=== PATIENT | female | born 1990 | race Caucasian/White ===

== ENCOUNTER 2016-05-14 15:45 | Emergency (ER) | payer MEDICAID, OTHER ==
[~2016-05-14] VITALS: Ht 160 cm; Wt 56.7 kg
[2016-05-14 16:13] VITALS: BP 95/58
== END 2016-05-15 00:25 | disposition left against medical advice (07) ==
LOC: ER 15:55
DX: R10.30 Lower abdominal pain, unspecified (principal); R30.0 Dysuria; Z53.21 Procedure and treatment not carried out due to patient leaving prior to being seen by health care provider

== ENCOUNTER 2018-12-19 07:29 | Inpatient (IN) | payer MEDICAID ==
[~2018-12-19] VITALS: Ht 33 cm; Wt 0.5 kg
[2018-12-19] MEDS ORDERED: LACTATED RINGER'S 1,000 ML IV SCH (07:43)
[2018-12-19] MEDS ORDERED: LACT. RINGERS/OXYTOCIN 20UNITS 1,000 ML IV SCH (07:43)
[2018-12-19] MEDS ORDERED: DERMOPLAST 60ML BOTTLE TOP PRN (07:45)
[2018-12-19] MEDS ORDERED: PHISODERM TOP SOLN 240ML BTL TOP PRN (07:45)
[2018-12-19] MEDS ORDERED: WITCH HAZEL-GLYCERIN PAD TOP PRN (07:45)
[2018-12-19] MEDS ORDERED: PENICILLIN G POT 5MIL/D5 50ML 50 ML IV ONE (07:45)
[2018-12-19] MEDS ORDERED: LIDOCAINE 2%HCL (LOCAL ANESTH.) INJ 20ML MDV ID ONE (07:45)
[2018-12-19] MEDS ORDERED: ceFAZolin 1GM/50ML 50 ML IV ONE (07:57)
[2018-12-19] MEDS ORDERED: LIDOCAINE 2%HCL (LOCAL ANESTH.) INJ 20ML MDV ONE (08:01)
[2018-12-19] MEDS ORDERED: LACT. RINGERS/OXYTOCIN 20UNITS 1,000 ML IV ONE (08:02)
[2018-12-19 08:51] LABS: Albumin 1.9 g/dL (3.4-5.0); Potassium 4.3 mmol/L (3.5-5.1)
[2018-12-19 08:52] LABS: Basophils # (auto) 0 uL; Basophils % (auto) 0.3 % (0.0-2.0); Eosinophils # (auto) 0 uL; Eosinophils % (auto) 0.2 % (0.0-7.0); Hematocrit 32.9 % (36.0-46.0); Hemoglobin 10.2 g/dL (12.2-16.2); INR < 0.93 (0.9-1.15); Lymphocytes # (auto) 2.2 uL; Lymphocytes % (auto) 15.7 % (10.0-50.0); Mean Corpuscular Hemoglobin 25.3 pg (28.0-32.0); Mean Corpuscular Hgb Conc. 30.9 g/dL (32.0-36.0); Mean Corpuscular Volume 81.9 fL (80.0-100.0); Monocytes # (auto) 0.9 uL; Monocytes % (auto) 6.4 % (0.0-12.0); Neutrophils # (auto) 10.8 uL; Neutrophils % (auto) 77.4 % (37.0-80.0); Partial Thromboplastin Time 23.6 sec (23.64-32.05); Platelet Count (auto) 275 10^3/uL (140-450); Red Blood Cells 4.02 10^6/uL (4.0-5.20); Red Cell Distribution Width 15.2 % (11.8-14.3); White Blood Cell 13.9 10^3/uL (4.4-10.8)
[2018-12-19 08:56] LABS: BUN/Creatinine Ratio 8.4; Bilirubin, Total 0.7 mg/dL (0.2-1.0); Total Protein 6.2 g/dL (6.4-8.2); Uric Acid 6.7 mg/dL (2.6-6.0)
[2018-12-19 09:08] LABS: Urine Bacteria NONE SEEN /hpf (None Seen); Urine Blood Negative /uL (Negative); Urine Specific Gravity 1.014 (1.001-1.035); Urine WBC 13 /hpf (0 - 5)
[2018-12-19] MEDS ORDERED: ACETAMINOPHEN 325 MG TAB PO PRN (09:30)
[2018-12-19] MEDS: IBUPROFEN 600 MG TAB PO PRN ×2 (10:22→23:05)
[2018-12-19 11:12] VITALS: BP 120/74
--- NOTE | 2018-12-19 11:12 | NUR ---
burch noted on legs and arms, pt states " that they are from scratching due to bug bites". Addendum: 12/19/18 at 1743 by Nitza Morse RN Amended: Links added.
--- NOTE | 2018-12-19 11:12 | NUR ---
Ambulation: Pt assisted to side of bed to dangle prior to ambulation. VS taken, fundus and lochia checked. Patient OOB with standby assistance by RN. Patient ambulated to bathroom with steady gait. Patient unable to void at . Pericare teaching provided with returned demonstration by patient. Clean gown provided and bed linen changed. Patient ambulated back to bed with steady gait and no distress noted.
[2018-12-19 12:18] LABS: Alcohol, Urine < 3.0 mg/dL (0-5); Amphetamine Screen, Urine POSITIVE (NEGATIVE); Barbiturate Scree,Urine NEGATIVE (NEGATIVE); Cannabinoid Screen, Urine NEGATIVE (NEGATIVE); Cocaine Screen, Urine NEGATIVE (NEGATIVE); Opiate Scree,Urine POSITIVE (NEGATIVE); Phencyclidine Screen, Urine NEGATIVE (NEGATIVE)
[2018-12-19 12:26] LABS: Benzodiazephine Screen, Urine NEGATIVE (NEGATIVE)
--- NOTE | 2018-12-19 13:06 | NUR ---
Dr. Andrea called and inform of TSH results and all other lab results. UDS results given. Orders received for Hospitalist consult for elevated TSH and pt history of gianna's disease.
--- NOTE | 2018-12-19 13:10 | NUR ---
[facility] called and notified of hospitalist consult.
[2018-12-19] MEDS ORDERED: ceFAZolin 1GM/50ML 50 ML IV SCH (14:00)
[2018-12-19] MEDS ORDERED: PENICILLIN G POTASSIUM 2,500,000 UNITS in D5W 5% 50 ML IV SCH (14:00)
[2018-12-19 16:30] VITALS: BP 117/71
--- NOTE | 2018-12-19 18:10 | NUR ---
Report given to Zacarias Watson RN on stable pt. Relinquished care. Addendum: 12/19/18 at 1843 by Nitza Morse RN Amended: Links added.
[2018-12-19 22:55] VITALS: BP 127/86
--- NOTE | 2018-12-19 23:30 | NUR ---
Call placed to CPS: Referral number: [id number] Spoke to fundraising sale representative Susana Sim. Informed that mother and baby tested positive for amphetamines and opiates, mother is bonding with baby at this time. Mother has another child named Cary Monroy ( 04/09/18) who lives with patient's mother. The following demographic information was given to Susana: Pt phone number [phone] Pt boyfriend Jose Manuel Martinez Joselito [phone] Pt states she will be living her mother, Ella Dharmeshprieto @ [address] [facility] [address]. Ella's # is [phone]
[2018-12-20] MEDS ORDERED: RHO (D) IMMUNE GLOBULIN 300 MCG INJ IM ONE
--- NOTE | 2018-12-20 01:00 | NUR ---
IV removal IV DC'd with sterile technique, catheter fully intact. Pressure dressing applied to site. Patient tolerated procedure well.
--- NOTE | 2018-12-20 01:20 | NUR ---
Patient verbalizes that she last used heroin on Friday.
[2018-12-20 02:40] VITALS: BP 116/61
[2018-12-20] MEDS: IBUPROFEN 600 MG TAB PO PRN ×2 (05:06→19:57)
[2018-12-20 07:00] VITALS: BP 114/74
--- NOTE | 2018-12-20 10:00 | NUR ---
CPS CALL JENNIFER STUART [phone] CALLED AND STATED THAT SHE WILL BE HERE AT 10PM TONIGHT TO TALK WITH MOTHER.
[2018-12-20 11:00] VITALS: BP 129/77
--- NOTE | 2018-12-20 11:26 | NUR ---
WORLD LANGUAGE TEACHER CALLED MADE TO [employer]. MESSAGE LEFT.
[2018-12-20 12:09] LABS: RPR Non Reactive (Non Reactive)
[2018-12-20 15:00] VITALS: BP 126/87
--- NOTE | 2018-12-20 15:42 | NUR ---
Jazmin called and stated she will follow up in the morning
--- NOTE | 2018-12-20 16:11 | NUR ---
Ella Cotton is the mother of the patient. her phone number is [phone]. she wants to be here when CPS arrives if they happen to have any questions for her
[2018-12-20 19:00] VITALS: BP 115/87
[2018-12-20 22:46] VITALS: BP 136/79
--- NOTE | 2018-12-21 01:09 | NUR ---
Camila Amador [place] Social Service Practitioner at bedside
[2018-12-21 02:55] VITALS: BP 136/91
[2018-12-21 04:06] LABS: Rubella Antibodies, IgG 5.38 index (Immune >0.99)
--- NOTE | 2018-12-21 06:10 | NUR ---
Report received from Deidre Jara RN on stable pt. Assumed care. Addendum: 12/21/18 at 0627 by Nitza Morse RN Amended: Links added.
[2018-12-21 06:45] VITALS: BP 111/72
--- NOTE | 2018-12-21 07:52 | NUR ---
CPS social science teacher arrives to unit and speaks with this RN and patient. CPS hold placed on until Grandmother is cleared to take home.
--- NOTE | 2018-12-21 09:15 | NUR ---
Discharge: Discharge instructions given as ordered. Pt encouraged to follow up with HEATING AND VENTILATION ENGINEER as instructed. All questions and concerns addressed. Patient verbalized understanding. Medication reconciliation completed and copy given to patient. All required/requested vaccines given and copies of vaccinations given to patient. Patient encouraged to prepare to depart unit.
--- NOTE | 2018-12-21 09:54 | NUR ---
Assessment and SS consult Pt is a 28 yr old alert and oriented female. Pt came into hospital on Friday, 12/19, with contractions for labor. Pt gave vaginally to a baby girl, who was named Erendira, on Tuesday 12/19. SS consult given due to "no PNC, UDS positive for opiates and amphetamines, homeless, has a positive UDS for opiates and amphetamines also." SW informed by pt's nurse, Nitza, that CPS was called Friday night by RN Nicki Leonard, Referral number: [id number], and that CPS had already done a visit with the mother and that they put a hold on the baby. SW talked with the pt. The pt was holding her baby at the time of the assessment. Pt stated that she understands that CPS put a hold on her baby and that she is unable to take her home. Pt stated that her mother, Ella Page, who can be reached at [phone], is planning and preparing to take care of baby Erendira along with the pt's other daughter, Cary Monroy, who is age 10, as long as the pt doesn't live there too. Pt stated that she will be staying with her step-dad, in [facility] upon d/c. Pt stated that she did not take vitamins during because she would get really sick each time she tried. Pt stated that she did not see a doctor during her because her old DrAbdirizak wasn't practicing anymore and she didn't know who to go to. Pt was interested in resources including WIC info, PCP info, mental health resources including substance abuse recovery and rehab center in the [facility]. SW provided requested resources. SW talked with nurse on staff who stated that CPS said that it was alright for the pt to hold the baby in the hospital until she is d/c'd. SW called CPS to verify that no additional information was needed. CPS stated that the mandated report was fulfilled and that no additional information is required. Addendum: 12/21/18 at 0954 by MANUEL KENNEY SS Amended: Links added.
--- NOTE | 2018-12-21 10:20 | NUR ---
Dr. Andrea called by this RN and informed of TSH level 3.16. Orders received to continue with d/c home.
[2018-12-21 11:33] VITALS: BP 132/83
--- NOTE | 2018-12-21 11:44 | NUR ---
Discharge: Patient ambulated with steady gait to vehicle with all personal belongings, accompanied by staff and family member. No distress noted at time of departure, no adverse changes in status since initial assessment.
== END 2018-12-21 11:44 | disposition home or self-care (01) | DRG 560 ==
LOC: OBSVTOIN 07:29 → LDRP 07:29
PROVIDERS: ADMIT Specialist; ATTEND Specialist
PROC: 10D07Z6 Extraction of Products of Conception, Vacuum, Via Natural or Artificial Opening (ICD-10-PCS; principal; 2018-12-19)
PROC: 0HQ9XZZ Repair Perineum Skin, External Approach (ICD-10-PCS; 2018-12-19)
DX: O77.0 Labor and delivery complicated by meconium in amniotic fluid (principal); O60.13X0 Preterm labor second trimester with preterm delivery third trimester, not applicable or unspecified; O62.3 Precipitate labor; Z37.0 Single live birth; Z3A.36 36 weeks gestation of pregnancy; O70.0 First degree perineal laceration during delivery; O99.324 Drug use complicating childbirth; F11.10 Opioid abuse, uncomplicated
CPT/HCPCS: 36415; 59025; 59409; 80053; 80307; 81001; 84112; 84443; 84550; 85025; 85610; 85730; 86592; 86703; 86762; 86850; 86900; 86901; 87340; 90384; 96365; 96366; 96372; G0378; J0690; J2590; J7060

== ENCOUNTER 2021-02-14 14:58 | Inpatient (IN) | payer MEDICAID ==
[~2021-02-14] VITALS: Ht 165.1 cm; Wt 63.5 kg
[2021-02-14] MEDS ORDERED: ALBUTEROL SULF 2.5 MG/0.5ML(0.5%) NEB SOLN NEB ONE ×2 (15:15→20:30)
[2021-02-14] MEDS ORDERED: IPRATROPIUM BROM 0.5 MG/2.5ML INH SOL NEB ONE ×3 (15:15→20:30)
[2021-02-14 22:15] LABS: Basophils # (auto) 0 10 ^3/uL (0-0.2); Basophils % (auto) 0.1 % (0.0-2.0); Eosinophils # (auto) 0 10 ^3/uL (0-0.8); Eosinophils % (auto) 0.1 % (0.0-7.0); Hematocrit 34.4 % (36.0-46.0); Hemoglobin 11.1 g/dL (12.2-16.2); Lymphocytes # (auto) 0.4 10 ^3/uL (0.4-5.4); Mean Corpuscular Hemoglobin 22.8 pg (28.0-32.0); Mean Corpuscular Hgb Conc. 32.2 g/dL (32.0-36.0); Mean Corpuscular Volume 70.9 fL (80.0-100.0); Monocytes # (auto) 0.1 10 ^3/uL (0-1.3); Monocytes % (auto) 1.1 % (0.0-12.0); Neutrophils # (auto) 12.7 10 ^3/uL (1.6-8.6); Neutrophils % (auto) 95.7 % (37.0-80.0); Red Blood Cells 4.86 10^6/uL (4.0-5.20); White Blood Cell 13.3 10^3/uL (4.4-10.8)
[2021-02-14 22:32] LABS: Albumin 3.6 g/dL (3.4-5.0); Calcium 8.7 mg/dL (8.5-10.1); Magnesium 2.9 mg/dL (1.6-2.6); Potassium 4.2 mmol/L (3.5-5.1)
[2021-02-14 22:35] LABS: BUN/Creatinine Ratio 11.8; Bilirubin, Total 0.4 mg/dL (0.2-1.0); Total Protein 7.2 g/dL (6.4-8.2)
[2021-02-15] MEDS ORDERED: ONDANSETRON HCL 4 MG/2 ML VIAL IV PRN (01:15)
[2021-02-15] MEDS ORDERED: NITROGLYCERIN 0.4 MG SL TAB SL PRN (01:15)
[2021-02-15] MEDS ORDERED: MORPHINE SULFATE INJECTION 2 MG/ML SYRG IV PRN (01:15)
[2021-02-15] MEDS: ALBUTEROL SULF 2.5 MG/0.5ML(0.5%) NEB SOLN NEB SCH ×4 (05:48→22:54)
[2021-02-15] MEDS ORDERED: methylPREDNISolone SOD SUCC 40 MG/ML VL IV SCH (06:00)
[2021-02-15 12:00] VITALS: BP 103/55
[2021-02-15] MEDS ORDERED: methylPREDNISolone SOD SUCC 40 MG/ML VL IV ONE (15:00)
[2021-02-15 15:58] LABS: Basophils # (auto) 0 10 ^3/uL (0-0.2); Basophils % (auto) 0.1 % (0.0-2.0); Eosinophils # (auto) 0 10 ^3/uL (0-0.8); Hematocrit 33.2 % (36.0-46.0); Hemoglobin 10.8 g/dL (12.2-16.2); Lymphocytes # (auto) 0.8 10 ^3/uL (0.4-5.4); Lymphocytes % (auto) 5.4 % (10.0-50.0); Mean Corpuscular Hgb Conc. 32.4 g/dL (32.0-36.0); Mean Corpuscular Volume 70.9 fL (80.0-100.0); Monocytes # (auto) 0.9 10 ^3/uL (0-1.3); Neutrophils # (auto) 13.6 10 ^3/uL (1.6-8.6); Neutrophils % (auto) 88.5 % (37.0-80.0); Red Blood Cells 4.68 10^6/uL (4.0-5.20); Red Cell Distribution Width 18.3 % (11.8-14.3); White Blood Cell 15.4 10^3/uL (4.4-10.8)
[2021-02-15 16:00] VITALS: BP 104/53
[2021-02-15 16:14] LABS: Anion Gap 7 (5-15); BUN/Creatinine Ratio 21.6; Blood Urea Nitrogen 16 mg/dL (7-18); Carbon Dioxide 24 mmol/L (21-32); Chloride 108 mmol/L (98-107); GFR African American 119 mL/min; GFR Non-African American 98 mL/min; Glucose 137 mg/dL (74-106); Potassium 4.9 mmol/L (3.5-5.1); Sodium 139 mmol/L (136-145)
[2021-02-15] MEDS: methylPREDNISolone SOD SUCC 40 MG/ML VL IV SCH (21:16)
[2021-02-15 22:00] VITALS: BP 117/69
[2021-02-15] MEDS: guaiFENesin-DM 100/10mg/5ml SYR PO PRN (22:01)
[2021-02-16] MEDS: guaiFENesin-DM 100/10mg/5ml SYR PO PRN ×2 (02:31→07:06)
[2021-02-16 05:00] VITALS: BP 105/58
[2021-02-16 08:52] VITALS: BP 129/70
[2021-02-16] MEDS ORDERED: SODIUM CHLORIDE 0.9 % NEB SOLN 3ML NEB ONE (09:43)
[2021-02-16] MEDS: methylPREDNISolone SOD SUCC 40 MG/ML VL IV SCH (09:59)
[2021-02-16 12:58] VITALS: BP 141/66
[2021-02-16] MEDS ORDERED: DEXT1SYP9 PO (16:45)
[2021-02-16] MEDS ORDERED: IPR002IS NEB (16:45)
[2021-02-16] MEDS ORDERED: PRED20TA2 PO (16:45)
[2021-02-16] MEDS ORDERED: ALBU0.084 NEB (16:45)
[2021-02-16 16:52] VITALS: BP 122/74
== END 2021-02-16 19:30 | disposition home or self-care (01) | DRG 133 ==
LOC: ER 14:58 → EDBD 14:58 → TELE 02-15 01:13 → TELE-WESTW 02-15 09:15
PROVIDERS: ADMIT Hospitalist; ATTEND Hospitalist
PROC: 5A09357 Assistance with Respiratory Ventilation, Less than 24 Consecutive Hours, Continuous Positive Airway Pressure (ICD-10-PCS; principal; 2021-02-14)
DX: J96.01 Acute respiratory failure with hypoxia (principal); J45.901 Unspecified asthma with (acute) exacerbation; F17.200 Nicotine dependence, unspecified, uncomplicated; Z20.822 Contact with and (suspected) exposure to COVID-19; J98.11 Atelectasis; Z71.6 Tobacco abuse counseling
CPT/HCPCS: 36415; 36600; 71045; 80048; 80053; 81025; 82805; 83735; 84702; 85025; 87426; 94640; 94644; 94660; 96374; 99291; G0378

== ENCOUNTER 2023-06-14 10:23 | Inpatient (IN) | payer MEDICAID ==
[~2023-06-14] VITALS: Ht 160 cm; Wt 72.6 kg
[~2023-06-14 10:23] MED LIST: ALBU0.084 NEB; DEXT1SYP9 PO; IPR002IS NEB; PRED20TA2 PO
[2023-06-14] MEDS: ALBUTEROL SULF 2.5 MG/0.5ML(0.5%) NEB SOLN ONE (10:29)
[2023-06-14] MEDS: IPRATROPIUM BROM 0.5 MG/2.5ML INH SOL ONE (10:29)
[2023-06-14] MEDS: IPRATROPIUM BROM 0.5 MG/2.5ML INH SOL HHN ONE (10:30)
[2023-06-14] MEDS: MAGNESIUM SULFATE 1GM/100ML 100 ML IV SCH (10:30)
[2023-06-14] MEDS: ALBUTEROL SULF 2.5 MG/0.5ML(0.5%) NEB SOLN HHN ONE (10:30)
[2023-06-14] MEDS: DexAMETHasone SOD PHOS 10MG/1ML VIAL INJ IV ONE (10:38)
[2023-06-14] MEDS: LORazepam 2MG/ML-1ML VIAL IV ONE (10:45)
[2023-06-14 11:02] LABS: Base Excess -5.7 mmol/L (-2.0-2.0)
[2023-06-14 11:22] VITALS: PULSE 117
[2023-06-14 11:39] LABS: Alanine Aminotransferase 69 U/L (7-40); Alkaline Phosphatase 59 U/L (46-116); Anion Gap 9 (5-15); Aspartate Aminotransferase 68 U/L (13-40); BUN/Creatinine Ratio 8.1 (10.0-20.0); Blood Urea Nitrogen 8 mg/dL (9-23); Calcium 9.1 mg/dL (8.5-10.1); Carbon Dioxide 22 mmol/L (20-30); Chloride 109 mmol/L (98-107); Glucose 150 mg/dL (74-106); Potassium 4.2 mmol/L (3.5-5.1); Sodium 140 mmol/L (136-145)
[2023-06-14 11:40] LABS: Bilirubin, Total 0.5 mg/dL (0.2-1.0); Total Protein 6.4 g/dL (5.7-8.2)
[2023-06-14 11:42] LABS: Basophils # (auto) 0.1 10 ^3/uL (0-0.2); Basophils % (auto) 0.5 % (0.0-2.0); Eosinophils # (auto) 0.9 10 ^3/uL (0-0.8); Eosinophils % (auto) 6.6 % (0.0-7.0); Hematocrit 42.7 % (36.0-46.0); Hemoglobin 13.6 g/dL (12.2-16.2); Lymphocytes # (auto) 2.2 10 ^3/uL (0.4-5.4); Lymphocytes % (auto) 16.1 % (10.0-50.0); Mean Corpuscular Hemoglobin 27.4 pg (28.0-32.0); Mean Corpuscular Hgb Conc. 31.8 g/dL (32.0-36.0); Monocytes # (auto) 0.8 10 ^3/uL (0-1.3); Monocytes % (auto) 6.3 % (0.0-12.0); Neutrophils # (auto) 9.4 10 ^3/uL (1.6-8.6); Neutrophils % (auto) 70.5 % (37.0-80.0); Red Blood Cells 4.97 10^6/uL (4.0-5.20); Red Cell Distribution Width 14.4 % (11.8-14.3); White Blood Cell 13.4 10^3/uL (4.4-10.8)
[2023-06-14 13:08] LABS: Base Excess -3.5 mmol/L (-2.0-2.0)
[2023-06-14] MEDS ORDERED: MORPHINE SULFATE INJ 2 MG/ml SYRG IV PRN (13:15)
[2023-06-14] MEDS ORDERED: ACETAMINOPHEN 325 MG TAB PO PRN (13:15)
[2023-06-14] MEDS ORDERED: SODIUM CHLORIDE 0.9% 1,000 ML IV SCH (13:15)
[2023-06-14] MEDS ORDERED: NITROGLYCERIN 0.4 MG SL TAB SL PRN (13:15)
[2023-06-14] MEDS ORDERED: ALBUTEROL SULF 2.5 MG/0.5ML(0.5%) NEB SOLN NEB PRN (13:15)
[2023-06-14] MEDS ORDERED: SODIUM CHLORIDE 0.9% 1,000 ML IV ONE (13:30)
[2023-06-14 14:30] VITALS: BP 121/76; PULSE 77; O2SAT 94
[2023-06-14] MEDS: IPRATROPIUM BROM 0.5 MG/2.5ML INH SOL NEB SCH (14:30)
[2023-06-14] MEDS: ALBUTEROL SULF 2.5 MG/0.5ML(0.5%) NEB SOLN NEB SCH (14:30)
[2023-06-14 14:58] VITALS: BP 99/53; PULSE 104; RESP 30; TEMP 98.7; O2SAT 95
[2023-06-14 15:51] VITALS: BP 115/73; PULSE 95; O2SAT 93
[2023-06-14 16:08] LABS: Base Excess -3.2 mmol/L (-2.0-2.0)
[2023-06-14 17:46] VITALS: PULSE 94; RESP 20; O2SAT 94
[2023-06-14 17:52] VITALS: PULSE 97; RESP 20; O2SAT 97
[2023-06-14] MEDS ORDERED: methylPREDNISolone SOD SUCC 40 MG/ML VL IV SCH (22:00)
[2023-06-15] MEDS ORDERED: ENOXAPARIN SOD 40 MG/0.4 ML SYRINGE SC SCH (10:00)
[2023-06-15] MEDS ORDERED: methylPREDNISolone SOD SUCC 40 MG/ML VL IV SCH (16:00)
[2023-06-15] MEDS ORDERED: BUDESONIDE (INHALATION) 0.5 MG/2 ML NEB NEB SCH (22:00)
[2023-06-15] MEDS ORDERED: MONTELUKAST SODIUM 10 MG TAB PO SCH (22:00)
[2023-06-15] MEDS ORDERED: FAMOTIDINE 20 MG TAB PO SCH (22:00)
[2023-06-16] MEDS ORDERED: cefTRIAXone 1GM/50ML D5W 50 ML IV SCH (09:00)
== END 2023-06-15 19:30 | disposition left against medical advice (07) | DRG 133 ==
LOC: EDBD 10:23 → ER 10:23 → TELE 13:17
PROVIDERS: ADMIT Nurse Practitioner Family; ATTEND Nurse Practitioner Family
PROC: 5A09357 Assistance with Respiratory Ventilation, Less than 24 Consecutive Hours, Continuous Positive Airway Pressure (ICD-10-PCS; principal; 2023-06-14)
DX: J96.02 Acute respiratory failure with hypercapnia (principal); J45.902 Unspecified asthma with status asthmaticus; R74.01 Elevation of levels of liver transaminase levels; D72.829 Elevated white blood cell count, unspecified; Z53.29 Procedure and treatment not carried out because of patient's decision for other reasons; J96.01 Acute respiratory failure with hypoxia
CPT/HCPCS: 36415; 36600; 71045; 76705; 80053; 82805; 83605; 83735; 85025; 87040; 93005; 94640; 94644; 94660; 96365; 96375; G0378; J1100

== ENCOUNTER 2023-12-17 06:58 | Inpatient (IN) | payer MEDICAID ==
[~2023-12-17] VITALS: Ht 167.6 cm; Wt 73.8 kg
[2023-12-17] VITALS (62 sets, daily range): BP systolic 87–122; BP diastolic 42–88; PULSE 71–122; RESP 14–23; TEMP 98.4–99.5; O2SAT 92–100
[2023-12-17] MEDS: ETOMIDATE (2MG/ML) 20ML VIAL IV ONE (07:08)
[2023-12-17] MEDS: ROCURONIUM 10MG/ML 10ML VIAL IV ONE (07:08)
[2023-12-17] MEDS: MAGNESIUM SULFATE 1GM/100ML 100 ML IV ONE (07:15)
--- NOTE | 2023-12-17 07:15 | ED.PDOC ---
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 EMS reports patient had started to experience SOB for about 30 minutes prior to calling 911, however, upon arrival, patient was found to be cyanotic and tripoding. EMS relays that they started to provide O2 via bagging and a dose of epinephrine. EMS states patient is moving all extremities now, but unable to breath on her own. Patient denies any chest pain, dizziness, N/V/D, headache, cough, or fever. Time Seen by MD: 07:08 Primary Care Provider: NONE Reviewed notes: Nurses Notes, Cuff Presser Notes, Medications, Allergies Information Source: Patient, Emergency Med Personnel Mode of Arrival: EMS Severity: Moderate Timing: Hours Duration: Since onset Context: At Rest PE Risk Factors: None History of: Asthma Prehospital treatment: Oxygen, Other (Epinephrine) Modifying Factors: Nothing Associated Signs and Symptoms: None Past Medical History PAST MEDICAL HISTORY: Asthma Surgical History: Denies all surgeries TOBACCO SORTER History: Denies all TOBACCO SORTER Hx Family History Family History: Reviewed,noncontributory to illness Social History Smoker: Non-Smoker Alcohol: Denies ETOH Use Drugs: Heroin Lives In: Home Constitutional: denies: chills, diaphoresis, fatigue, fever, malaise, sweats, weakness, others EENTM: denies: blurred vision, double vision, ear bleeding, ear discharge, ear drainage, ear pain, ear ringing, eye pain, eye redness, hearing loss, mouth pain, mouth swelling, nasal discharge, nose bleeding, nose congestion, nose pain, photophobia, tearing, throat pain, throat swelling, voice changes, others Respiratory: reports: shortness of breath; denies: cough, hemoptysis, orthopnea, SOB at rest, SOB with excertion, stridor, wheezing, others Cardiovascular: denies: chest pain, dizzy spells, diaphoresis, Dyspnea on exertion, edema, irregular heart beat, left arm pain, lightheadedness, palpitations, PND, syncope, others Gastrointestinal: denies: abdomen distended, abdominal pain, blood streaked bowels, constipated, diarrhea, dysphagia, difficulty swallowing, hematemesis, melena, nausea, poor appetite, poor fluid intake, rectal bleeding, rectal pain, vomiting, others Genitourinary: denies: abnormal vagina bleeding, burning, dyspareunia, dysuria, flank pain, frequency, hematuria, incontinence, pain, , vagina discharge, urgency, others Neurological: denies: dizziness, fainting, headache, left sided numbness, left sided weakness, numbness, paresthesia, pre-existing deficit, right sided numbness, right sided weakness, seizure, speech problems, tingling, tremors, weakness, others Musculoskeletal: denies: back pain, gout, joint pain, joint swelling, muscle pain, muscle stiffness, neck pain, others Integumetry: reports: change in color; denies: bruises, change in hair/nails, dryness, laceration, lesions, lumps, rash, wounds, others Allergic/Immunocompromised: denies: Difficulty Healing, Frequent Infections, Hives, Itching, others Hematologic/Lymphatic: denies: anemia, blood clots, easy bleeding, easy bruising, swollen glands, others Endocrine: denies: excessive hunger, excessive sweating, excessive thirst, excessive urination, flushing, intolerance to cold, intolerance to heat, unexplained weight gain, unexplained weight loss, others Psychiatric: denies: anxiety, bipolar disorder, depression, hopeless, panic disorder, schizophrenia, sleepless, suicidal, others All Other Systems: Reviewed and Negative Physical Exam General Appearance: Normal, Severe Distress HEENT: Normal ENT Inspection, PERRL/EOMI Neck: Full Range of Motion, Non-Tender, Normal, Normal Inspection Respiratory: Accessory Muscle Use, Respiratory Distress, Wheezing, Other (Intubated) Cardiovascular: No Edema, No JVD, No Murmur, No Gallop, Normal Peripheral Pulses, Tachycardia Breast Exam: Deferred Gastrointestinal: No Organomegaly, Non Tender, No Pulsatile Mass, Normal Bowel Sounds, Soft Genitalia: Deferred Pelvic: Deferred Rectal: Deferred Extremities: No calf tenderness, Normal capillary refill, Normal range of motion, Non-tender, No pedal edema, Other (Moving all extremities) Musculoskeletal : Apperance: Normal Neurologic: Other (Unable to answer any questions respiratory distress) Cerebellar Function: NOT DONE Reflexes: NOT DONE Skin: Dry, Normal Color, Warm Peripheral Pulses: 3+ Radial (R), 3+ Radial (L) Lymphatic: No Adenopathy Was a procedure done? Was a procedure done?: Yes Sedation Sedation?: Yes Informed consent obtained: Yes Sedation start time: 07:05 Sedation end time: 07:10 Sedation total time: 5 minutes Intubation Indication: Respiratory Insufficiency, Airway Protection Prep: Preoxygenation Pretreated with: Sedation (100mg of Rocuronium, 20mg of Etomidate) Intubation Approach: Orotracheal Intubation size: cm (8) Informed consent obtained: Yes Risks/benefits/alt described: Yes Differential Dx Differential Diagnosis: Anxiety, Asthma, Bronchitis, CHF, COPD X-Ray, Labs, Meds, VS Vital Signs Date Time Temp Pulse Resp B/P (MAP) Pulse Ox O2 Delivery O2 Flow Rate FiO2 12/17/23 08:00 123 12/17/23 07:59 165/102 12/17/23 07:30 165/102 12/17/23 07:15 97.5 122 14 165/102 (123) 93 97.5 12/17/23 07:15 122 14 93 Mechanical Ventilator+ 100 100 12/17/23 07:10 97.6 135 38 161/96 (117) 89 12/17/23 07:10 123 16 165/102 (123) 100 100 12/17/23 07:08 161/96 Lab Test 12/17/23 08:10 12/17/23 07:35 12/17/23 07:27 Range/Units Blood Gas Specimen Type Arterial Blood Gas Sample Site Right radial Blood Gas Patient Temperature 37.0 Arterial Blood Date Drawn [id number] Arterial Blood pH 7.188 *L 7.350-7.450 Arterial Blood Partial Pressure CO2 66.4 *H 32.0-45.0 mmHg Arterial Blood Partial Pressure O2 369.3 *H 83.0-108.0 mmHg Arterial Blood HCO3 24.7 21.0-28.0 mmol/L Arterial Blood Oxygen Saturation 99.7 H 94.0-98.0 % Arterial Blood Base Excess -5.0 L -2.0-3.0 mmol/L Arterial Blood Oxyhemoglobin 98.3 H 94.0-98.0 % Arterial Blood Carboxyhemoglobin 0.8 0.5-1.5 % Arterial Blood Methemoglobin 0.6 0.0-1.5 % Darnell Test Modified Blood Gas Total Hemoglobin 15.30 12.0-16.0 g/dL Blood Gas Set Respiration Rate 16.0 Blood Gas Modality Vent - ac FiO2 % 100.0 Blood Gas Tidal Volume 500.0 Blood Gas PEEP or CPAP 5.0 Blood Gas Critical Value Read Back Yes Blood Gas Notified Whom chance Theodore md Blood Gas Notified Time [id number] Blood Gas Notified By Passenger Car Conductor eliza kiran White Blood Count 27.2 H 4.4-10.8 10^3/uL Red Blood Count 5.33 H 4.0-5.20 10^6/uL Hemoglobin 15.0 12.2-16.2 g/dL Hematocrit 45.8 36.0-46.0 % Mean Corpuscular Volume 85.9 80.0-100.0 fL Mean Corpuscular Hemoglobin 28.2 28.0-32.0 pg Mean Corpuscular Hemoglobin Concent 32.8 32.0-36.0 g/dL Red Cell Distribution Width 15.2 H 11.8-14.3 % Platelet Count 280 140-450 10^3/uL Mean Platelet Volume 8.0 6.9-10.8 fL Neutrophils (%) (Auto) 37.0-80.0 % Lymphocytes (%) (Auto) 10.0-50.0 % Monocytes (%) (Auto) 0.0-12.0 % Basophils (%) (Auto) 0.0-2.0 % Neutrophils # (Auto) 1.6-8.6 10 ^3/uL Lymphocytes # (Auto) 0.4-5.4 10 ^3/uL Monocytes # (Auto) 0-1.3 10 ^3/uL Differential Total Cells Counted Pending Neutrophils % (Manual) Pending Band Neutrophils % (Manual) Pending Lymphocytes % (Manual) Pending Monocytes % (Manual) Pending Eosinophils % (Manual) Pending Basophils % (Manual) Pending Metamyelocytes % (manual) Pending Myelocytes % (Manual) Pending Promyelocytes % (Manual) Pending Blast Cells % (Manual) Pending Reactive Lymphocytes Pending Platelet Estimate Pending Sodium Level 139 136-145 mmol/L Potassium Level 4.8 3.5-5.1 mmol/L Chloride Level 105 98-107 mmol/L Carbon Dioxide Level 25 20-31 mmol/L Anion Gap 9 5-15 Blood Urea Nitrogen 12 9-23 mg/dL Creatinine 1.04 H 0.550-1.02 mg/dL Glomerular Filtration Rate Calc 73 >90 mL/min BUN/Creatinine Ratio 11.5 10.0-20.0 Serum Glucose 180 H 74-106 mg/dL Calcium Level 9.3 8.7-10.4 mg/dL Urine Color Light-yellow Yellow Urine Clarity Clear Clear Urine pH 5.5 5.0-9.0 Urine Specific Lester 1.013 1.001-1.035 Urine Protein 1+ H Negative Urine Ketones Negative Negative Urine Blood 2+ H Negative /uL Urine Nitrite Negative Negative Urine Bilirubin Negative Negative Urine Urobilinogen Normal Negative mg/dL Urine Leukocyte Esterase Negative Negative /uL Urine RBC <1 0 - 4 /hpf Urine WBC <1 0 - 5 /hpf Urine Squamous Epithelial Cells Few <5 /hpf Urine Bacteria None seen None Seen /hpf Urine Hyaline Casts Many 0 - 2 /lpf Urine Glucose Normal Normal mg/dL Current Medications Medications (Trade) Dose Ordered Sig/Murphy Route Start Time Stop Time Status Last Admin Etomidate 20 mg ONCE ONCE IV 12/17/23 07:15 12/17/23 07:16 DC 12/17/23 07:08 Rocuronium [place] 100 mg ONCE ONCE IV 12/17/23 07:15 12/17/23 07:16 DC 12/17/23 07:08 Sodium Chloride 1,000 ml @ 1,000 mls/hr Q1H ONCE IV 12/17/23 07:15 12/17/23 08:14 DC 12/17/23 08:04 Sodium Chloride 1,000 ml @ 150 mls/hr Q6H40M ONCE IV 12/17/23 07:15 12/17/23 13:54 12/17/23 08:05 Methylprednisolone Sodium Succinate (Solu Medrol) 125 mg ONCE ONCE IV 12/17/23 07:15 12/17/23 07:17 DC 12/17/23 07:26 Albuterol (Ventolin Medneb) 5 mg ONCE ONCE NEB 12/17/23 07:15 12/17/23 07:17 DC 12/17/23 07:53 Ipratropium [place] (Atrovent Medneb) 0.5 mg ONCE ONCE NEB 12/17/23 07:15 12/17/23 07:17 DC 12/17/23 07:53 Magnesium Sulfate/ Dextrose 100 ml @ 100 mls/hr ONCE ONCE IV 12/17/23 07:15 12/17/23 08:14 DC 12/17/23 07:15 Midazolam HCl 50 ml @ 1 mls/hr Q24H IV 12/17/23 07:30 12/17/23 07:59 Fentanyl Citrate 250 ml @ 2.5 mls/hr Q24H IV 12/17/23 07:30 12/17/23 07:30 Patient slightly confused. Confusion is from respiratory distress. Blood pressure elevated. Establish intravenous access. Was given steroid. Was given breathing treatment. Intubated. Was given magnesium. Sedation. Reviewed her previous visit. Uses drugs. Waiting for family. Continue cardiac monitoring. Chest XR: FINDINGS: Medical devices: The ETT ends 3.5 cm above the level of zenia. Enteric tube extends to the stomach. Cardiomediastinal: The heart is normal in size. Pulmonary vasculature is within normal limits. Lungs: No focal pulmonary opacity is seen. The costophrenic angles are clear. No pneumothorax. Bones/soft tissues: No acute abnormality is noted. IMPRESSION: 1. No acute cardiopulmonary disease. The ETT and NGT are satisfactory in position. Images Reviewed?: Images reviewed and evaluated by me Time of 1ST Reevaluation: 08:08 Reevaluation 1ST: Improved Patient Education/Counseling: Diagnosis, Treatment Family Education/Counseling: No Family Present Departure 1 Departure Time of Disposition: 08:07 Impression: Primary Impression: Respiratory failure with hypoxia Qualified Codes: J96.01 - Acute respiratory failure with hypoxia Additional Impressions: Asthma exacerbation Qualified Codes: J45.41 - Moderate persistent asthma with (acute) exacerbation Pneumonitis Disposition: ADMITTED INPATIENT Admit to: ICU Condition: Guarded Critical Care Note Critical Care Time?: Yes (90 min-critical care time only) Stability Stability form required: No Heart Score Heart Score: Heart Score Response (Comments) Value History N/A 0 EKG N/A 0 Age N/A 0 Risk Factors N/A 0 Troponin N/A 0 Total 0 I personally scribed for ROSALIO THEODORE MD ([email or web address]) on 12/17/23 at 07:15. Electronically submitted by Augustus Hickman ([email or web address]). I personally scribed for ROSALIO THEODORE MD ([email or web address]) on 12/17/23 at 08:31. Electronically submitted by Augustus Hickman ([email or web address]). ROSALIO THEODORE MD Dec 17, 2023 07:15
[2023-12-17] MEDS: methylPREDNISolone SOD SUCC 125 MG/2 ML VL IV ONE (07:26)
[2023-12-17] MEDS: MIDAZOLAM DRIP 50 mg/50mL 50 ML IV ONE (07:28)
[2023-12-17] MEDS: fentaNYL Drip 2500mCg/250mlNS 250 ML IV ONE (07:28)
[2023-12-17] MEDS: fentaNYL Drip 2500mCg/250mlNS 250 ML IV SCH (07:30)
[2023-12-17 07:41] LABS: Urine Bacteria None Seen /hpf (None Seen)
[2023-12-17] MEDS: ALBUTEROL SULF 2.5 MG/0.5ML(0.5%) NEB SOLN NEB ONE ×2 (07:53→11:31)
[2023-12-17] MEDS: IPRATROPIUM BROM 0.5 MG/2.5ML INH SOL NEB ONE (07:53)
[2023-12-17] MEDS: MIDAZOLAM DRIP 50 mg/50mL 50 ML IV SCH (07:59)
[2023-12-17 08:01] LABS: Chloride 105 mmol/L (98-107); Hematocrit 45.8 % (36.0-46.0); Mean Corpuscular Hemoglobin 28.2 pg (28.0-32.0); Mean Corpuscular Hgb Conc. 32.8 g/dL (32.0-36.0); Mean Corpuscular Volume 85.9 fL (80.0-100.0); Platelet Count (auto) 280 10^3/uL (140-450); Potassium 4.8 mmol/L (3.5-5.1); Red Blood Cells 5.33 10^6/uL (4.0-5.20); Red Cell Distribution Width 15.2 % (11.8-14.3); Sodium 139 mmol/L (136-145); White Blood Cell 27.2 10^3/uL (4.4-10.8)
[2023-12-17 08:02] LABS: Anion Gap 9 (5-15); Calcium 9.3 mg/dL (8.7-10.4); Carbon Dioxide 25 mmol/L (20-31)
[2023-12-17] MEDS: SODIUM CHLORIDE 0.9% 1,000 ML IV ONE ×2 (08:04→08:05)
[2023-12-17 08:06] LABS: Band Neutrophils % (manual) 0; Basophils % (manual) 0 (0.0-2.0); Blast Cells 0; Metamyelocytes % 0; Myelocytes % 0; Promyelocytes % 0; Reactive Lymphocytes 0
[2023-12-17 08:07] LABS: BUN/Creatinine Ratio 11.5 (10.0-20.0); Blood Urea Nitrogen 12 mg/dL (9-23); Glucose 180 mg/dL (74-106)
--- NOTE | 2023-12-17 08:08 | DVH ---
Procedure: XY CHEST PORTABLE 12/17/2023 07:45 AM Indication: sob. Comparison: XY CHEST PORTABLE on DOS: 06/14/23, CHEST PORTABLE on DOS: 02/14/21 TECHNIQUE: XY CHEST PORTABLE FINDINGS: Medical devices: The ETT ends 3.5 cm above the level of zenia. Enteric tube extends to the stomach. Cardiomediastinal: The heart is normal in size. Pulmonary vasculature is within normal limits. Lungs: No focal pulmonary opacity is seen. The costophrenic angles are clear. No pneumothorax. Bones/soft tissues: No acute abnormality is noted. IMPRESSION: 1. No acute cardiopulmonary disease. The ETT and NGT are satisfactory in position.
[2023-12-17 08:20] LABS: Urine Blood 2+ /uL (Negative); Urine Clarity Clear (Clear); Urine Color Light-Yellow (Yellow); Urine Hyaline Cast MANY /lpf (0 - 2); Urine Protein, UAD 1+ (Negative); Urine Specific Gravity 1.013 (1.001-1.035); Urine Urobilinogen Normal (Negative); Urine WBC <1 /hpf (0 - 5); Urine pH 5.5 (5.0-9.0)
[2023-12-17 08:35] LABS: Lymphocytes % (manual) 39 (10.0-50.0); Monocytes % (manual) 8 (0-12)
[2023-12-17 08:36] LABS: Eosinophils % (manual) 9 (0-7); Platelet Estimate Adequate
[2023-12-17] MEDS ORDERED: ALBUTEROL SULF 2.5 MG/0.5ML(0.5%) NEB SOLN NEB PRN (09:45)
[2023-12-17] MEDS ORDERED: NITROGLYCERIN 0.4 MG SL TAB SL PRN (09:45)
[2023-12-17] MEDS ORDERED: ONDANSETRON HCL 4 MG/2 ML VIAL IV PRN (09:45)
[2023-12-17] MEDS ORDERED: MORPHINE SULFATE INJ 2 MG/ml SYRG IV PRN (09:45)
[2023-12-17 09:53] LABS: Base Excess -1.6 mmol/L (-2.0-3.0)
--- NOTE | 2023-12-17 09:56 | DVHHP2 ---
History of Present Illness Reason for Visit: Respiratory failure with hypoxia History of Present Illness Gloria Kate is a 33-year old female with past medical history of asthma, comes in due to shortness of breath. Per EMS, patient was SOB for about 30 minutes prior to calling for help. When they arrived she was cyanotic and tripoding. Patient was intubated on arrival to ER. Patient has been seen in ER nurmerous times for similar complaints. It is stated that she uses heroin and is on methadone. I was unable to confirm due to patient being intubated. UDS did show marijuana and methamphetamines in her system. On assessment, patient was tachycardic and breath sounds were bilaterally diminished and had wheezing. Pulmonary: Asthma Drugs: Marijuana Review of Systems Constitutional: No: Fever, Chills, Sweats, Weakness, Malaise, Other Eyes: No: Pain, Vision change, Conjunctivae inflammation, Eyelid inflammation, Other, Redness ENT: No: Ear pain, Ear discharge, Nose pain, Nose discharge, Nose congestion, Mouth pain, Mouth swelling, Throat pain, Throat swelling, Other Respiratory: Shortness of breath, Wheezing; No: Cough, Dry, SOB with excertion, Hemoptysis, Pleuritic Pain, Sputum, Wheezing, Other Cardiovascular: No: Chest Pain, Palpitations, Orthopnea, Paroxysmal Noc. Dyspnea, Edema, Lt Headedness, Other Gastrointestinal: No: Nausea, Vomiting, Abdominal Pain, Diarrhea, Constipation, Melena, Hematochezia, Other Genitourinary: No Dysuria, No Frequency, No Incontinence, No Hematuria, No Re tention, No Other Musculoskeletal: No: other, neck pain, shoulder pain, arm pain, back pain, hand pain, leg pain, foot pain Skin: No: Rash, Lesions, Jaundice, Bruising, Other Allergies: Coded Allergies: NO KNOWN ALLERGIES (Unverified , 05/14/16) Medications Current Medications Medications Dose Ordered Sig/Murphy Route Start Time Stop Time Status Last Admin Dose Admin Midazolam HCl 50 ml @ 1 mls/hr Q24H IV 12/17/23 07:30 12/17/23 07:59 1 MLS/HR Fentanyl Citrate 250 ml @ 2.5 mls/hr Q24H IV 12/17/23 07:30 12/17/23 07:30 2.5 MLS/HR Sodium Chloride 1,000 ml @ 60 mls/hr [id number] IV 12/17/23 09:45 UNV Ondansetron HCl 4 mg Q4HP PRN IV 12/17/23 09:45 UNV Enoxaparin Sodium 30 mg DAILY SC 12/17/23 09:45 UNV Nitroglycerin 0.4 mg Q5MINP PRN SL 12/17/23 09:45 UNV Morphine Sulfate 2 mg Q30M PRN IV 12/17/23 09:45 UNV Methylprednisolone Sodium Succinate 40 mg DAILY IV 12/17/23 22:00 UNV Ipratropium Jackhorn 0.5 mg Q6HR NEB 12/17/23 12:00 UNV Albuterol 2.5 mg Q6HPRN PRN NEB 12/17/23 09:45 UNV Azithromycin 250 ml @ 125 mls/hr DAILY IV 12/17/23 10:00 UNV Exam Vital Signs Vital Signs Date Time Temp Pulse Resp B/P (MAP) Pulse Ox O2 Delivery O2 Flow Rate FiO2 12/17/23 09:00 140/100 12/17/23 08:00 123 12/17/23 07:15 97.5 14 93 97.5 12/17/23 07:15 Mechanical Ventilator+ 100 100 General Appearance: Other (sedated) HEENT: Atraumatic Respiratory: Other (bilaterally diminished and wheezing, intubated) Cardiovascular: Other (tachycardia) Abdominal: Normal bowel sounds, Soft Extremities: No clubbing, No cyanosis Skin: No rashes, No breakdown Neuro: Other (sedated) Labs/Xrays Labs Test 12/17/23 08:10 12/17/23 07:35 12/17/23 07:27 Range/Units Blood Gas Specimen Type Arterial Blood Gas Sample Site Right radial Blood Gas Patient Temperature 37.0 Arterial Blood Date Drawn [id number] Arterial Blood pH 7.188 *L 7.350-7.450 Arterial Blood Partial Pressure CO2 66.4 *H 32.0-45.0 mmHg Arterial Blood Partial Pressure O2 369.3 *H 83.0-108.0 mmHg Arterial Blood HCO3 24.7 21.0-28.0 mmol/L Arterial Blood Oxygen Saturation 99.7 H 94.0-98.0 % Arterial Blood Base Excess -5.0 L -2.0-3.0 mmol/L Arterial Blood Oxyhemoglobin 98.3 H 94.0-98.0 % Arterial Blood Carboxyhemoglobin 0.8 0.5-1.5 % Arterial Blood Methemoglobin 0.6 0.0-1.5 % Darnell Test Modified Blood Gas Total Hemoglobin 15.30 12.0-16.0 g/dL Blood Gas Set Respiration Rate 16.0 Blood Gas Modality Vent - ac FiO2 % 100.0 Blood Gas Tidal Volume 500.0 Blood Gas PEEP or CPAP 5.0 Blood Gas Critical Value Read Back Yes Blood Gas Notified Whom chance Marti md Blood Gas Notified Time [id number] Blood Gas Notified By Safety Companion eliza kiarn White Blood Count 27.2 H 4.4-10.8 10^3/uL Red Blood Count 5.33 H 4.0-5.20 10^6/uL Hemoglobin 15.0 12.2-16.2 g/dL Hematocrit 45.8 36.0-46.0 % Mean Corpuscular Volume 85.9 80.0-100.0 fL Mean Corpuscular Hemoglobin 28.2 28.0-32.0 pg Mean Corpuscular Hemoglobin Concent 32.8 32.0-36.0 g/dL Red Cell Distribution Width 15.2 H 11.8-14.3 % Platelet Count 280 140-450 10^3/uL Mean Platelet Volume 8.0 6.9-10.8 fL Neutrophils (%) (Auto) 37.0-80.0 % Lymphocytes (%) (Auto) 10.0-50.0 % Monocytes (%) (Auto) 0.0-12.0 % Basophils (%) (Auto) 0.0-2.0 % Neutrophils # (Auto) 1.6-8.6 10 ^3/uL Lymphocytes # (Auto) 0.4-5.4 10 ^3/uL Monocytes # (Auto) 0-1.3 10 ^3/uL Differential Total Cells Counted 100.0 100 Neutrophils % (Manual) 44 37.0-80.0 Band Neutrophils % (Manual) 0 Lymphocytes % (Manual) 39 10.0-50.0 Monocytes % (Manual) 8 0-12 Eosinophils % (Manual) 9 H 0-7 Basophils % (Manual) 0 0.0-2.0 Metamyelocytes % (manual) 0 Myelocytes % (Manual) 0 Promyelocytes % (Manual) 0 Blast Cells % (Manual) 0 Reactive Lymphocytes 0 Platelet Estimate Adequate Sodium Level 139 136-145 mmol/L Potassium Level 4.8 3.5-5.1 mmol/L Chloride Level 105 98-107 mmol/L Carbon Dioxide Level 25 20-31 mmol/L Anion Gap 9 5-15 Blood Urea Nitrogen 12 9-23 mg/dL Creatinine 1.04 H 0.550-1.02 mg/dL Glomerular Filtration Rate Calc 73 >90 mL/min BUN/Creatinine Ratio 11.5 10.0-20.0 Serum Glucose 180 H 74-106 mg/dL Calcium Level 9.3 8.7-10.4 mg/dL Urine Color Light-yellow Yellow Urine Clarity Clear Clear Urine pH 5.5 5.0-9.0 Urine Specific [place] 1.013 1.001-1.035 Urine Protein 1+ H Negative Urine Ketones Negative Negative Urine Blood 2+ H Negative /uL Urine Nitrite Negative Negative Urine Bilirubin Negative Negative Urine Urobilinogen Normal Negative mg/dL Urine Leukocyte Esterase Negative Negative /uL Urine RBC <1 0 - 4 /hpf Urine WBC <1 0 - 5 /hpf Urine Squamous Epithelial Cells Few <5 /hpf Urine Bacteria None seen None Seen /hpf Urine Hyaline Casts Many 0 - 2 /lpf Urine Glucose Normal Normal mg/dL Procedure: XY CHEST PORTABLE FINDINGS: Medical devices: The ETT ends 3.5 cm above the level of zenia. Enteric tube extends to the stomach. Cardiomediastinal: The heart is normal in size. Pulmonary vasculature is within normal limits. Lungs: No focal pulmonary opacity is seen. The costophrenic angles are clear. No pneumothorax. Bones/soft tissues: No acute abnormality is noted. IMPRESSION: 1. No acute cardiopulmonary disease. The ETT and NGT are satisfactory in position. Assessment/Plan Assessment/Plan Assessment: Respiratory failure with hypoxia, Acute asthma exacerbation, Poly substance abuse, Plan: Admit to ICU, Pulmonology consult, Blood culture, Sputum culture, IV antibiotics, IV hydration, IV steroids, Breathing treatments, Plan discussed with: Patient My Orders Orders - FLORI MEJIA Procedure Category Date Status Time Drug Screen LAB 12/17/23 In Process 09:06 Admit ADMIT 12/17/23 Transmitted 09:35 Code Status CODE 12/17/23 Transmitted 09:35 Sodium Chloride 0.9% PHA 11/6/24 Logged 09:45 Ondansetron Hcl PHA 12/17/23 Logged (Zofran) 09:45 Complete Blood Count LAB 12/18/23 Verified 04:00 Comprehensive LAB 12/18/23 Verified Metabolic Panel 04:00 Npo (Nothing By DIET 12/17/23 Transmitted Mouth) Diet Lunch Condition: Critical JUDY 12/17/23 In Process 09:35 Enoxaparin Sodium PHA 12/17/23 Logged (Lovenox) 09:45 Nitroglycerin PHA 12/17/23 Logged Sublingual (Ntrostat 09:45 Morphine Sulfate PHA 12/17/23 Logged Injection 09:45 Stat Ekg For Chest JUDY 12/17/23 In Process Pain 09:35 Notify Md Of Changes [facility] 12/17/23 In Process From Base 09:35 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 [facility] 12/17/23 In Process 24 Hours 09:35 Emergency Dysrhythmia [facility] 12/17/23 In Process Protocol 09:35 Rhythm Strips Once JUDY 12/17/23 In Process Every Shift 09:35 Oxygen By Nasal RT 12/17/23 Transmitted Cannula 09:35 Methylprednisolone PHA 12/17/23 Logged Sod Succ (Solu Medrol 22:00 Ipratropium Medneb PHA 12/17/23 Logged (Atrovent Medneb) 12:00 Albuterol Medneb PHA 12/17/23 Logged (Ventolin Medneb) 09:45 *Consult CONS 12/17/23 Transmitted / 09:35 Azithromycin 500mg/ PHA 12/17/23 Logged 250ml (Zithromax 50 10:00 Blood Culture JOHN 12/17/23 Logged 09:35 Date of Service: Dec 17, 2023 Billing Provider: FLORI MEJIA Common Visit Codes: [id number] INP/OBS CARE (HIGH) FLORI MEJIA Dec 17, 2023 09:55
[2023-12-17] MEDS: ENOXAPARIN SOD 30 MG/0.3 ML SYRINGE SC SCH (10:00)
[2023-12-17 10:11] LABS: Amphetamine Screen, Urine Pos (NEGATIVE); Barbiturate Scree,Urine Neg (NEGATIVE); Benzodiazephine Screen, Urine Neg (NEGATIVE); Cocaine Screen, Urine Neg (NEGATIVE); Opiate Scree,Urine Neg (NEGATIVE)
[2023-12-17 10:12] LABS: Cannabinoid Screen, Urine Pos (NEGATIVE); Phencyclidine Screen, Urine Neg (NEGATIVE)
[2023-12-17] MEDS: SODIUM CHLORIDE 0.9% 1,000 ML IV SCH ×2 (10:18→19:00)
[2023-12-17] MEDS: PROPOFOL 100 ML IV SCH (10:51)
[2023-12-17] MEDS: PROPOFOL 100 ML IV ONE (11:00)
[2023-12-17] MEDS: AZITHROMYCIN 500MG/ 250ML 250 ML IV SCH (11:21)
[2023-12-17] MEDS: IPRATROPIUM BROM 0.5 MG/2.5ML INH SOL NEB SCH ×2 (11:31→18:29)
[2023-12-17] MEDS: ALBUTEROL SULF 2.5 MG/0.5ML(0.5%) NEB SOLN ONE (12:24)
--- NOTE | 2023-12-17 12:54 | DVH ---
EXAM: XY CHEST PORTABLE Indication:CENTRAL LINE PLACEMENT Technique: XY CHEST PORTABLE Comparison: XY CHEST PORTABLE on DOS: 12/17/23, XY CHEST PORTABLE on DOS: 06/14/23, CHEST PORTABLE on DO S: 02/14/21, XY CHEST PORTABLE on DOS: 12/17/23 FINDINGS: Lines and Tubes: Endotracheal tube projects 4 cm above the level of the zenia. Enteric tube tip proj ects over the expected region of the distal stomach. Right central venous catheter tip projects over the right atrium. Lungs: No focal consolidation. Pleura: No effusion. No pneumothorax. Cardiomediastinal contours: Unremarkable Bones: No acute osseous abnormality. IMPRESSION: Interval placement of right central venous catheter with tip projecting over the right atrium. Other lines and tubes are stable.
[2023-12-17 13:15] LABS: Lactic Acid w/Reflex 2.3 mmol/L (0.4-2.0)
--- NOTE | 2023-12-17 13:59 | DVHINCON2 ---
Date of service: Dec 17, 2023 Referring Physician SAMANTHA Yao Reason for Consultation Acute hypoxic respiratory failure, asthma exacerbation, mechanical ventilation management History of Present Illness 33-year-old woman history of asthma, methadone use presented with shortness of breath and wheezing. She was found to be cyanotic and tripoding. She was intubated on arrival to the emergency department. She has been seen for similar complaints in the past in the ED. it was noted that patient uses heroin and is on methadone. Urine tox is notable for marijuana and methamphetamines. She was currently sedated, intubated on mechanical ventilator. Pulmonary consultation is called due to acute hypoxic respiratory failure, asthma exacerbation on mechanical ventilation management. Review of systems: Unable to be obtained due to patient's critical condition. Past medical history: Methamphetamine abuse, asthma, obesity Past surgical history: Unable to obtain due to patient's critical condition. Medications: Reviewed Allergies: No known drug allergies. Family history: No family history of premature CAD. No family history of lung disease. Social history: Marijuana smoker, methamphetamine abuse. Family History: Patient reports no known family medical history. Allergies: Coded Allergies: NO KNOWN ALLERGIES (Unverified , 05/14/16) Home Meds Active Scripts Ipratropium Coleman (Ipratropium Coleman) 0.02 % Crystal, 0.5 % NEB Q6HPRN PRN, #120 VIAL Prov:KEYONNA MOORE MD 02/16/21 Albuterol Sulfate (Albuterol Sulfate) 0.083 % Neb, 1 VIAL NEB Q6HPRN PRN, #120 VIAL Prov:KEYONNA MOORE MD 02/16/21 Dextromethorphan-Guaifenesin (Robitussin-Dm) 10 Ml Sr, 10 ML PO Q4HP PRN, #480 ML Prov:KEYONNA MOORE MD 02/16/21 Prednisone (Prednisone) 20 Mg Tab, 1 DOSE PO UD, #21 MG Take 80mg dailyx2 days then 60mg dailyx2 days then 40mg dailyx2 days then 20mg dailyx2 days then 10 mg dailyx2 days Prov:KEYONNA MOORE MD 02/16/21 Current Medications Current Medications Medications (Trade) Dose Ordered Sig/Murphy Route PRN Reason Start Time Stop Time Status Last Admin Midazolam HCl 50 ml @ 1 mls/hr Q24H IV 12/17/23 07:30 12/17/23 11:10 Fentanyl Citrate 250 ml @ 2.5 mls/hr Q24H IV 12/17/23 07:30 12/17/23 07:30 Sodium Chloride 1,000 ml @ 60 mls/hr [id number] IV 12/17/23 09:45 12/17/23 10:18 Ondansetron HCl (Zofran) 4 mg Q4HP PRN IV NAUSEA / VOMITING 12/17/23 09:45 Enoxaparin Sodium (Lovenox) 30 mg DAILY SC 12/17/23 09:45 12/17/23 10:00 Nitroglycerin (Ntrostat Sublingual) 0.4 mg Q5MINP PRN SL FOR CHEST PAIN 12/17/23 09:45 Morphine Sulfate 2 mg Q30M PRN IV FOR CHEST PAIN 12/17/23 09:45 Methylprednisolone Sodium Succinate (Solu Medrol) 40 mg DAILY IV 12/17/23 22:00 12/17/23 13:57 DC Ipratropium Coleman (Atrovent Medneb) 0.5 mg Q6HR NEB 12/17/23 12:00 12/17/23 11:31 Albuterol (Ventolin Medneb) 2.5 mg Q6HPRN PRN NEB SHORTNESS OF BREATH 12/17/23 09:45 12/17/23 13:57 DC Azithromycin 250 ml @ 125 mls/hr DAILY IV 12/17/23 10:00 12/17/23 11:21 Propofol 100 ml @ 2.181 mls/ hr Q24H IV 12/17/23 10:45 12/17/23 10:51 Albuterol (Ventolin Medneb) 2.5 mg Q4HR NEB 12/17/23 14:00 UNV Methylprednisolone Sodium Succinate (Solu Medrol) 40 mg Q6HR IV 12/17/23 18:00 UNV Budesonide (Pulmicort) 0.5 mg BID NEB 12/17/23 22:00 UNV Dexmedetomidine HCl 400 mcg/ Dextrose 100 ml @ 3.635 mls/ hr Q24H IV 12/17/23 14:00 UNV Dexmedetomidine HCl 400 mcg/ Dextrose 100 ml @ 3.635 mls/ hr Q24H IV 12/17/23 14:00 UNV Dexmedetomidine HCl 400 mcg/ Dextrose 100 ml @ 3.635 mls/ hr Q24H IV 12/17/23 14:00 UNV Vital Signs Vital Signs Date Time Temp Pulse Resp B/P (MAP) Pulse Ox O2 Delivery O2 Flow Rate FiO2 12/17/23 13:45 20 95 Mechanical Ventilator+ 45 45 45 12/17/23 13:45 98 12/17/23 13:32 99.1 96/50 99.1 Physical Exam Gen.: Patient lying in bed in medical ICU. Sedated, intubated on mechanical ventilator. Head: Normocephalic, atraumatic. Eyes: PERRLA. Ears: Normal external anatomy. Throat: Endotracheal tube and orogastric tube in place. Neck: Supple, trachea midline. Chest: Transmitted breath sounds bilaterally. Decreased air entry bilaterally. No wheezing. Bibasilar crackles. Cardio vascular: Positive S1, positive S2. Regular rate and rhythm. Abdomen: Positive bowel sounds in all 4 quadrants. Soft, nontender, nondistended. : Andrew in place. Normal external genitalia. Rectal: Deferred Skin: Warm, dry. Intact. Extremities: 2+ radial pulses bilaterally. No lower extremity edema. Neuro: Sedated. Labs/Diagnostic Data Labs Test 12/17/23 12:04 12/17/23 09:38 12/17/23 07:35 12/17/23 07:27 Range/Units Lactic Acid Level 2.3 *H 0.4-2.0 mmol/L Blood Gas Specimen Type Arterial Blood Gas Sample Site Right radial Blood Gas Patient Temperature 37.0 Arterial Blood Date Drawn [id number] Arterial Blood pH 7.341 L 7.350-7.450 Arterial Blood Partial Pressure CO2 46.4 H 32.0-45.0 mmHg Arterial Blood Partial Pressure O2 54.6 *L 83.0-108.0 mmHg Arterial Blood HCO3 24.5 21.0-28.0 mmol/L Arterial Blood Oxygen Saturation 86.4 L 94.0-98.0 % Arterial Blood Base Excess -1.6 -2.0-3.0 mmol/L Arterial Blood Oxyhemoglobin 85.2 L 94.0-98.0 % Arterial Blood Carboxyhemoglobin 0.5 0.5-1.5 % Arterial Blood Methemoglobin 0.9 0.0-1.5 % Darnell Test Modified Blood Gas Total Hemoglobin 14.70 12.0-16.0 g/dL Blood Gas Set Respiration Rate 20.0 Blood Gas Modality Vent - ac FiO2 % 35.0 Blood Gas Tidal Volume 550.0 Blood Gas PEEP or CPAP 5.0 Blood Gas Critical Value Read Back Yes Blood Gas Notified Whom chance Marti md Blood Gas Notified Time [id number] Blood Gas Notified By [employer] Operator eliza kiran White Blood Count 27.2 H 4.4-10.8 10^3/uL Red Blood Count 5.33 H 4.0-5.20 10^6/uL Hemoglobin 15.0 12.2-16.2 g/dL Hematocrit 45.8 36.0-46.0 % Mean Corpuscular Volume 85.9 80.0-100.0 fL Mean Corpuscular Hemoglobin 28.2 28.0-32.0 pg Mean Corpuscular Hemoglobin Concent 32.8 32.0-36.0 g/dL Red Cell Distribution Width 15.2 H 11.8-14.3 % Platelet Count 280 140-450 10^3/uL Mean Platelet Volume 8.0 6.9-10.8 fL Neutrophils (%) (Auto) 37.0-80.0 % Lymphocytes (%) (Auto) 10.0-50.0 % Monocytes (%) (Auto) 0.0-12.0 % Basophils (%) (Auto) 0.0-2.0 % Neutrophils # (Auto) 1.6-8.6 10 ^3/uL Lymphocytes # (Auto) 0.4-5.4 10 ^3/uL Monocytes # (Auto) 0-1.3 10 ^3/uL Differential Total Cells Counted 100.0 100 Neutrophils % (Manual) 44 37.0-80.0 Band Neutrophils % (Manual) 0 Lymphocytes % (Manual) 39 10.0-50.0 Monocytes % (Manual) 8 0-12 Eosinophils % (Manual) 9 H 0-7 Basophils % (Manual) 0 0.0-2.0 Metamyelocytes % (manual) 0 Myelocytes % (Manual) 0 Promyelocytes % (Manual) 0 Blast Cells % (Manual) 0 Reactive Lymphocytes 0 Platelet Estimate Adequate Sodium Level 139 136-145 mmol/L Potassium Level 4.8 3.5-5.1 mmol/L Chloride Level 105 98-107 mmol/L Carbon Dioxide Level 25 20-31 mmol/L Anion Gap 9 5-15 Blood Urea Nitrogen 12 9-23 mg/dL Creatinine 1.04 H 0.550-1.02 mg/dL Glomerular Filtration Rate Calc 73 >90 mL/min BUN/Creatinine Ratio 11.5 10.0-20.0 Serum Glucose 180 H 74-106 mg/dL Calcium Level 9.3 8.7-10.4 mg/dL Urine Color Light-yellow Yellow Urine Clarity Clear Clear Urine pH 5.5 5.0-9.0 Urine Specific [place] 1.013 1.001-1.035 Urine Protein 1+ H Negative Urine Ketones Negative Negative Urine Blood 2+ H Negative /uL Urine Nitrite Negative Negative Urine Bilirubin Negative Negative Urine Urobilinogen Normal Negative mg/dL Urine Leukocyte Esterase Negative Negative /uL Urine RBC <1 0 - 4 /hpf Urine WBC <1 0 - 5 /hpf Urine Squamous Epithelial Cells Few <5 /hpf Urine Bacteria None seen None Seen /hpf Urine Hyaline Casts Many 0 - 2 /lpf Urine Glucose Normal Normal mg/dL Urine Opiates Screen Neg NEGATIVE Urine Fentanyl Screen Neg NEGATIVE Urine Barbiturates Screen Neg NEGATIVE Urine Phencyclidine Screen Neg NEGATIVE Urine Amphetamines Screen Pos NEGATIVE Urine Benzodiazepines Screen Neg NEGATIVE Urine Cocaine Screen Neg NEGATIVE Urine Cannabinoids Screen Pos NEGATIVE Assessment Impression: Acute hypoxic respiratory failure secondary to asthma exacerbation Acute hypercarbic respiratory failure On mechanical ventilator Asthma exacerbation Methamphetamine abuse Marijuana use Plan: s/p intubation on mechanical ventilator CXR image and report reviewed. Right subclavian central line in place. No acute opacities, pleural effusion or pneumothorax. ABG reviewed. Compensated. On assist control with a respiratory rate of 20, tidal volume 550, peep of five, FiO2 at 45% Titrate FIO2 to keep O2 saturation above 92%. VAP bundle Daily ABG and CXR while intubated. Sedate for ventilatory synchrony Taper sedation overnight Will re-evaluate in AM for CPAP trial CPAP Trial per orders. Wheezing improves with bronchodilator treatments. On pressors for hemodynamic support. On Levophed at 2 micrograms/minute. Titrate to keep MAP above 65 mmHg/SBP above 90 mmHg. Continue bronchodilators Start Pulmicort twice daily IV steroids, increase frequency to every 6 hours Continue antibiotics. F/u cultures. Monitor renal function due to Acute kidney injury. Monitor electrolytes. Supplement as necessary. Nutritional support. Accucheks, ISS. GI/DVT prophylaxis. Condition: Critical Prognosis: Poor given multiple comorbidities. Rest of plan per hospitalist and other consultants. A total of 36 minutes of critical care time was spent reviewing the patient record, examining the patient, making a diagnostic and therapeutic plan, discussing this plan with the medical personnel, following up on diagnostic studies and following the patient for clinical stability excluding any and all procedures. At least 50% of this time was spent in direct, [id number] contact. Thank you SAMANTHA Yao for allowing me to participate in this patient's care. Further recommendations will depend on patient's clinical course. Please do not hesitate to contact me if you have any questions or concerns. This medical document was created using an electronic medical record system with [employer] computerized dictation system. Although this document has been carefully reviewed, there may still be some phonetic and typographical errors. These areas are purely typographical due to imperfections of the software programs, and do not reflect any compromise in the patient's medical care. Plan discussed with: Other (WOLFGANG Hightower, RT Alexandra NP) ZACHERY MARTINEZ MD Dec 17, 2023 13:59
[2023-12-17] MEDS ORDERED: ALBUTEROL SULF 2.5 MG/0.5ML(0.5%) NEB SOLN NEB SCH (14:00)
[2023-12-17] MEDS ORDERED: VANCOMYCIN PER PHARMACY 0 MG IV SCH (14:45)
[2023-12-17] MEDS: VANCOMYCIN 1.5GM/300ML 300 ML IV ONE (15:30)
[2023-12-17] MEDS: CEFEPIME 1GM/ 50ML 50 ML IV ONE (15:39)
[2023-12-17] MEDS: NOREPINEPHRINE 8 MG/250ML KIT 250 ML IV SCH (16:45)
[2023-12-17] MEDS: NOREPINEPHRINE 8 MG/250ML KIT 250 ML IV ONE (16:53)
[2023-12-17] MEDS: methylPREDNISolone SOD SUCC 40 MG/ML VL IV SCH (16:55)
--- NOTE | 2023-12-17 18:22 | DVHNC2 ---
Procedure - ULTRASOUND-GUIDED RIGHT SUBCLAVIAN CENTRAL VENOUS CANNULATION CPT Codes: 47056 (ultrasound guidance) 15174 (insertion of non-tunneled centrally inserted central venous catheter) 29223 (CXR interpretation) DATE: 12/17/2023 PHYSICIAN: Zachery Mike PREOPERATIVE DIAGNOSIS: Poor venous access, administration of vaso-active medications. POSTOPERATIVE DIAGNOSIS: Same PROCEDURE PERFORMED: Limited Ultrasound-guided Right SUBCLAVIAN central line placement. ANESTHESIA: 2 mL of 1% lidocaine plain. ESTIMATED BLOOD LOSS: less than 5 mL. SPECIMENS: None. COMPLICATIONS: None. INDICATIONS FOR PROCEDURE: The patient is in need of large bore IV access for administration of fluids, including blood products and vasoactive drugs, p ossible transvenous cardiac pacing and CVP monitoring for hemodynamic instability. DESCRIPTION OF PROCEDURE IN DETAIL: The patient was lying in the Trendelenburg position with head turned 30 degrees away from the insertion site. The skin was thoroughly sponged with chlorhexidine and allowed to dry. All persons involved were shielded with hair nets, face masks and sterile gowns. With sterile-gloved hands the right neck area was draped with the large disposable sterile field provided in the pre-manufactured kit. The skin and subcutaneous tissues superficial to the RIGHT SUBCLAVIAN vein were anesthetized with 2 mL of 1% lidocaine. The RIGHT SUBCLAVIAN vein was identified on ultrasound from the angle of the mandible down into the supraclavicular fossa using the linear ultrasound probe in the transverse orientation. The carotid artery was identified and avoided utilizing color-flow. The SUBCLAVIAN vein was then placed in the center of the ultrasound field and compressed for patency. A movement artifact was identified as the needle was advanced through the skin and advanced toward the vessel. A real time hyperechoic signal revealed visualization of vascular needle entry into the lumen as blood was noted to flashback in the syringe. The needle was then held in place while the guide wire was advanced. The needle was then removed. Direct visualization of guide wire location within the vein was noted on ultrasound indicating proper placement and was document in the electronic medical record chart. A skin dilator was advanced over the guidewire and removed, and the triple-lumen catheter was then advanced over the guide wire into proper position. The guide wire was removed and discarded. The ports were aspirated which showed good blood return and then carefully flushed with normal saline. The catheter was stabilized and sutured to the skin with 2-0 silk at 2 anchor points. A sterile bio-patch and dressing was placed over the catheter, including the insertion site. The patient tolerated the procedure well. A chest x-ray was ordered for position confirmation. I reviewed the image immediately after it was taken at bedside. Post-procedure chest x-ray demonstrates the central line in the superior vena near RA and no evidence of any pneumothorax. An image recording of the procedure accompanies the chart. ZACHERY MIKE MD Dec 17, 2023 18:22
[2023-12-17] MEDS: ALBUTEROL SULF 2.5 MG/0.5ML(0.5%) NEB SOLN NEB SCH (18:30)
[2023-12-17] MEDS ORDERED: methylPREDNISolone SOD SUCC 40 MG/ML VL IV SCH ×2 (22:00)
[2023-12-17] MEDS: FAMOTIDINE (10MG/ML) 2ML VL IV SCH (22:12)
[2023-12-17] MEDS: CEFEPIME 1GM/ 50ML 50 ML IV SCH (22:12)
[2023-12-17] MEDS: BUDESONIDE (INHALATION) 0.5 MG/2 ML NEB NEB SCH (22:29)
[2023-12-18] VITALS (107 sets, daily range): BP systolic 90–128; BP diastolic 50–90; PULSE 59–99; RESP 10–31; TEMP 97.3–99; O2SAT 90–99
[2023-12-18] MEDS: VANCOMYCIN 1GM/200ML PREMIX 200 ML IV SCH (00:03)
[2023-12-18 03:59] LABS: Basophils # (auto) 0 10 ^3/uL (0-0.2); Basophils % (auto) 0.2 % (0.0-2.0); Eosinophils # (auto) 0 10 ^3/uL (0-0.8); Hematocrit 42.2 % (36.0-46.0); Hemoglobin 13.9 g/dL (12.2-16.2); Lymphocytes # (auto) 1.1 10 ^3/uL (0.4-5.4); Lymphocytes % (auto) 4.6 % (10.0-50.0); Mean Corpuscular Hemoglobin 28.1 pg (28.0-32.0); Mean Corpuscular Volume 85.4 fL (80.0-100.0); Monocytes # (auto) 0.7 10 ^3/uL (0-1.3); Monocytes % (auto) 2.8 % (0.0-12.0); Neutrophils # (auto) 21.8 10 ^3/uL (1.6-8.6); Neutrophils % (auto) 92.4 % (37.0-80.0); Platelet Count (auto) 251 10^3/uL (140-450); Red Blood Cells 4.95 10^6/uL (4.0-5.20); White Blood Cell 23.6 10^3/uL (4.4-10.8)
[2023-12-18 04:07] LABS: Alanine Aminotransferase 74 U/L (7-40); Albumin 3.8 g/dL (3.2-4.8); Alkaline Phosphatase 69 U/L (46-116); Anion Gap 6 (5-15); Aspartate Aminotransferase 60 U/L (13-40); Blood Urea Nitrogen 12 mg/dL (9-23); Calcium 8.9 mg/dL (8.7-10.4); Carbon Dioxide 24 mmol/L (20-31); Chloride 110 mmol/L (98-107); Glucose 183 mg/dL (74-106); Magnesium 2.4 mg/dL (1.6-2.6); Potassium 4.1 mmol/L (3.5-5.1); Sodium 140 mmol/L (136-145)
[2023-12-18 04:08] LABS: Bilirubin, Total 0.7 mg/dL (0.2-1.0); Phosphorus 2.8 mg/dL (2.4-5.1); Total Protein 6.2 g/dL (5.7-8.2)
--- NOTE | 2023-12-18 05:48 | DVH ---
CHEST RADIOGRAPH Indication:intubated/ asthma Technique: Single frontal view of the chest was obtained Comparison: XY CHEST PORTABLE on DOS: 12/17/23 FINDINGS: Lines and Tubes: The endotracheal tube terminates 4.5 cm above the zenia. The right central venous catheter terminates in the cavoatrial junction. The enteric tube courses below the left hemidiaphragm and the tip extends outside the field of view. Lungs: Left lower lobe consolidation. Pleura: No effusion. No pneumothorax. Cardiomediastinal contours: Unremarkable Bones: No acute osseous abnormality. IMPRESSION: 1. Mild left lower lobe consolidation.
[2023-12-18 07:37] LABS: Base Excess -1.7 mmol/L (-2.0-3.0)
[2023-12-18] MEDS: SODIUM CHLORIDE 0.9% 1,000 ML IV SCH (09:19)
[2023-12-18 10:10] LABS: Rapid Influenza A Negative (Negative)
[2023-12-18 10:11] LABS: COVID19 ANTIGEN SOFIA FIA NEGATIVE (NEGATIVE); Rapid Influenza B Negative (Negative)
[2023-12-18 10:20] LABS: Base Excess -3.4 mmol/L (-2.0-3.0)
[2023-12-18 11:15] LABS: Base Excess -4.6 mmol/L (-2.0-3.0)
--- NOTE | 2023-12-18 20:16 | DVHPNRES ---
Progress Note Date Seen: Dec 18, 2023 Resident Creating Document: MARY JANE PANTOJA RESIDENT Has the PT tested + for MRSA If YES, has PT been informed?: No Medical Necessity Reason Pt with a Central, PICC or Fol: No Subjective Review of Systems A 30-year-old woman with past medical history of asthma and polysubstance use who came to the ED brought by the family for shortness of breath wheezing cyanotic and three put position she was intubated and the arrival of the emergency room according to the family and patient is also uses heroin and methadone urine tox is positive for marijuana and methamphetamines at moment of the first assessment patient was intubated but patient was extubated at 11:00 a.m. at the moment of final assessment of the day patient was tolerating extubation. Patient was on Levophed the day before but at the moment of assessment patient is off pressor Objective vital signs Vital Sign Date Time Temp Pulse Resp B/P (MAP) Pulse Ox O2 Delivery O2 Flow Rate FiO2 12/18/23 19:00 94 13 110/64 (79) 90 12/18/23 18:03 Room Air* 0 21 12/18/23 16:15 98.6 98.6 Total Intake and Output 12/17/23 12/17/23 12/18/23 15:00 23:00 07:00 Intake Total 1918.215 ml 1448.411 ml 1523.428 ml Output Total 800 ml 1850 ml Balance 1918.215 ml 648.411 ml -326.572 ml medications Current Medications Medications Dose Ordered Sig/Murphy Route Start Time Stop Time Status Last Admin Dose Admin Midazolam HCl 50 ml @ 1 mls/hr Q24H IV 12/17/23 07:30 12/18/23 04:01 5 MLS/HR Fentanyl Citrate 250 ml @ 2.5 mls/hr Q24H IV 12/17/23 07:30 12/18/23 05:18 12.5 MLS/HR Ondansetron HCl 4 mg Q4HP PRN IV 12/17/23 09:45 Nitroglycerin 0.4 mg Q5MINP PRN SL 12/17/23 09:45 Morphine Sulfate 2 mg Q30M PRN IV 12/17/23 09:45 Azithromycin 250 ml @ 125 mls/hr DAILY IV 12/17/23 10:00 Hold 12/18/23 08:21 125 MLS/HR Propofol 100 ml @ 2.181 mls/ hr Q24H IV 12/17/23 10:45 12/18/23 05:05 10.905 MLS/HR Budesonide 0.5 mg BID NEB 12/17/23 22:00 12/18/23 18:03 0.5 MG Dexmedetomidine HCl 400 mcg/ Dextrose 100 ml @ 3.635 mls/ hr Q24H IV 12/17/23 14:00 12/18/23 00:04 3.635 MLS/HR Dexmedetomidine HCl 400 mcg/ Dextrose 100 ml @ 3.635 mls/ hr Q24H IV 12/17/23 14:00 Cancel Albuterol 2.5 mg Q4HR NEB 12/17/23 18:00 12/18/23 18:03 2.5 MG Ipratropium [place] 0.5 mg Q4HR NEB 12/17/23 18:00 12/18/23 18:03 0.5 MG Norepinephrine Bitartrate 250 ml @ 3.75 mls/hr Q24H IV 12/17/23 16:45 12/17/23 17:00 3.75 MLS/HR Famotidine 20 mg Q12HR IV 12/17/23 22:00 12/18/23 07:21 20 MG Enoxaparin Sodium 40 mg DAILY SC 12/19/23 10:00 Methylprednisolone Sodium Succinate 40 mg BID IV 12/18/23 22:00 Levofloxacin/ Dextrose 100 ml @ 100 mls/hr DAILY IV 12/19/23 10:00 Methadone HCl 10 mg Q8HR PO 12/18/23 22:00 UNV Examination Gen.: Patient lying in bed in medical ICU. Sedated, intubated on mechanical ventilator. Head: Normocephalic, atraumatic. Eyes: PERRLA. Ears: Normal external anatomy. Throat: Endotracheal tube and orogastric tube in place. Neck: Supple, trachea midline. Chest: Transmitted breath sounds bilaterally. Decreased air entry bilaterally. No wheezing. Bibasilar crackles. Cardio vascular: Positive S1, positive S2. Regular rate and rhythm. Abdomen: Positive bowel sounds in all 4 quadrants. Soft, nontender, nondistended. : Andrew in place. Normal external genitalia. Rectal: Deferred Skin: Warm, dry. Intact. Extremities: 2+ radial pulses bilaterally. No lower extremity edema. Neuro: Sedated. laboratory and microbiology Laboratory Tests 12/18/23 03:03 Test 12/18/23 03:03 Range/Units Serum Glucose 183 H 74-106 mg/dL Microbiology Date/Time Source Procedure Growth Status 12/17/23 12:04 Blood Blood Culture - Preliminary NO GROWTH AFTER 24 HOURS OF INCUBATION. Resulted 12/17/23 07:23 Sputum Gram Stain - Final Resulted 12/17/23 07:23 Sputum Respiratory Culture - Preliminary Resulted Problem List/Assessment/Plan Problem List/Assessment/Plan NEUROLOGY #polysubstance abuse #opioid withdraw methadone 10 mg q8h CARDIOLOGY #septic shock? possible concomitant pneumonia in asthma exacerbation patient is off pressors RESPIRATORY Acute hypoxic respiratory failure secondary to asthma exacerbation Acute hypercarbic respiratory failure On mechanical ventilator Asthma exacerbation possible concomitant pneumonia in asthma exacerbation Patient is tolerating extubation: cpap trial done for 2 h ABG after extubation with adequate po2 Levofloxacin and azithromycin IV albuterolm budesonide and ipratropium /RENAL normal creatinine GI Pt passed sylw evaluation, restart feedings Case discussed with Dr Singh Time spent in critical care including cpap trial more than 94 min Plan discussed with: Patient, Other (rn) My Orders My Orders Orders - MARY JANE PANTOJA Procedure Category Date Status Time Ventilator Orders RT 12/18/23 Transmitted 08:15 Abg W/ Co-Ox RT 12/18/23 Logged 09:15 Methylprednisolone PHA 12/18/23 In Process Sod Succ (Solu Medrol 22:00 Levofloxacin 500mg PHA 12/19/23 In Process (Levaquin 500mg/ 100m 10:00 Methadone Hcl Tablet PHA 12/18/23 Logged (Methadone Hcl Tabl 22:00 Pt Request For Service PT 12/18/23 Logged 18:10 Date of Service: Dec 18, 2023 Billing Provider: JOSÉ ANTONIO SINGH MD Common Visit Codes: 04013-[id number] CARE 30-74 MIN MARY JANE PANTOJA Dec 18, 2023 20:16 JOSÉ ANTONIO SINGH MD Dec 19, 2023 17:40
[2023-12-18] MEDS: methylPREDNISolone SOD SUCC 40 MG/ML VL IV SCH (21:55)
[2023-12-18] MEDS: METHADONE HCL 10 MG TAB PO SCH (22:00)
[2023-12-19] VITALS (29 sets, daily range): BP systolic 99–134; BP diastolic 64–97; PULSE 60–111; RESP 11–20; TEMP 98.3–98.5; O2SAT 88–99
[2023-12-19 03:49] LABS: Basophils # (auto) 0 10 ^3/uL (0-0.2); Basophils % (auto) 0.1 % (0.0-2.0); Eosinophils # (auto) 0 10 ^3/uL (0-0.8); Hematocrit 40.1 % (36.0-46.0); Hemoglobin 13.3 g/dL (12.2-16.2); Lymphocytes # (auto) 0.8 10 ^3/uL (0.4-5.4); Lymphocytes % (auto) 3.8 % (10.0-50.0); Mean Corpuscular Hgb Conc. 33.1 g/dL (32.0-36.0); Mean Corpuscular Volume 84.6 fL (80.0-100.0); Monocytes # (auto) 0.8 10 ^3/uL (0-1.3); Monocytes % (auto) 3.5 % (0.0-12.0); Neutrophils # (auto) 20.1 10 ^3/uL (1.6-8.6); Neutrophils % (auto) 92.6 % (37.0-80.0); Platelet Count (auto) 195 10^3/uL (140-450); Red Blood Cells 4.73 10^6/uL (4.0-5.20); Red Cell Distribution Width 15.2 % (11.8-14.3); White Blood Cell 21.7 10^3/uL (4.4-10.8)
[2023-12-19 03:55] LABS: Alanine Aminotransferase 66 U/L (7-40); Albumin 3.9 g/dL (3.2-4.8); Alkaline Phosphatase 61 U/L (46-116); Anion Gap 3 (5-15); Aspartate Aminotransferase 63 U/L (13-40); BUN/Creatinine Ratio 23.5 (10.0-20.0); Blood Urea Nitrogen 16 mg/dL (9-23); Calcium 9.1 mg/dL (8.7-10.4); Carbon Dioxide 26 mmol/L (20-31); Chloride 110 mmol/L (98-107); Glucose 138 mg/dL (74-106); Potassium 4.1 mmol/L (3.5-5.1); Sodium 139 mmol/L (136-145)
[2023-12-19 03:56] LABS: Bilirubin, Total 0.6 mg/dL (0.2-1.0)
--- NOTE | 2023-12-19 05:36 | DVH ---
CHEST RADIOGRAPH Indication:dyspnea Technique: Single frontal view of the chest was obtained COMPARISON: XY CHEST PORTABLE on DOS: 12/18/23, XY CHEST PORTABLE on DOS: 12/17/23, XY CHEST PORTABLE o n DOS: 12/17/23 FINDINGS: Lines and Tubes: Right central venous catheter in satisfactory position. Lungs: Clear Pleura: No effusion. No pneumothorax. Cardiomediastinal contours: Unremarkable Bones: Unremarkable IMPRESSION: No acute disease.
[2023-12-19] MEDS: ENOXAPARIN SOD 40 MG/0.4 ML SYRINGE SC SCH (07:57)
[2023-12-19] MEDS: levoFLOXacin 500MG 100 ML IV SCH (07:57)
[2023-12-19] MEDS ORDERED: PRED20TA2 PO (10:52)
[2023-12-19] MEDS ORDERED: FLUT1INH6 IN (10:52)
--- NOTE | 2023-12-19 11:29 | MEDREC ---
[facility] ASP Intervention Section I [facility] ASP Intervention: Duplication of therapy (CHEST X-RAY SHOWED CLEAR LUNGS TODAY. ANTIBIOTICS ARE NOT NEEDED FOR ASTHMA EXACERBATION. AZITHROMYCIN AND LEVOFLOXACIN ARE DUPLICATIONS. PLEASE CONSIDER DISCONTINUE OR DE-ESCALATE ANTIBIOTICS IF THERE IS NO MORE CONCERN FOR INFECTION) АННА LOWERY Dec 19, 2023 11:28
--- NOTE | 2023-12-20 13:56 | DVHDSRES ---
Discharge Summary Date of Admission Resident Creating Document: MARY JANE PANTOJA RESIDENT Dec 17, 2023 at 09:51 Date of Discharge: Dec 19, 2023 Admitting Diagnosis acute respiratory failure Labs/Diagnostic Data: Laboratory Results Test 12/19/23 03:24 12/18/23 11:06 12/18/23 09:59 12/18/23 08:38 White Blood Count 21.7 10^3/uL (4.4-10.8) Red Blood Count 4.73 10^6/uL (4.0-5.20) Hemoglobin 13.3 g/dL (12.2-16.2) Hematocrit 40.1 % (36.0-46.0) Mean Corpuscular Volume 84.6 fL (80.0-100.0) Mean Corpuscular Hemoglobin 28.0 pg (28.0-32.0) Mean Corpuscular Hemoglobin Concent 33.1 g/dL (32.0-36.0) Red Cell Distribution Width 15.2 % (11.8-14.3) Platelet Count 195 10^3/uL (140-450) Mean Platelet Volume 7.9 fL (6.9-10.8) Neutrophils (%) (Auto) 92.6 % (37.0-80.0) Lymphocytes (%) (Auto) 3.8 % (10.0-50.0) Monocytes (%) (Auto) 3.5 % (0.0-12.0) Eosinophils (%) (Auto) 0.0 % (0.0-7.0) Basophils (%) (Auto) 0.1 % (0.0-2.0) Neutrophils # (Auto) 20.1 10 ^3/uL (1.6-8.6) Lymphocytes # (Auto) 0.8 10 ^3/uL (0.4-5.4) Monocytes # (Auto) 0.8 10 ^3/uL (0-1.3) Eosinophils # (Auto) 0 10 ^3/uL (0-0.8) Basophils # (Auto) 0 10 ^3/uL (0-0.2) Nucleated Red Blood Cells 0.0 % Sodium Level 139 mmol/L (136-145) Potassium Level 4.1 mmol/L (3.5-5.1) Chloride Level 110 mmol/L (98-107) Carbon Dioxide Level 26 mmol/L (20-31) Anion Gap 3 (5-15) Blood Urea Nitrogen 16 mg/dL (9-23) Creatinine 0.68 mg/dL (0.550-1.02) Glomerular Filtration Rate Calc 118 mL/min (>90) BUN/Creatinine Ratio 23.5 (10.0-20.0) Serum Glucose 138 mg/dL (74-106) Calcium Level 9.1 mg/dL (8.7-10.4) Total Bilirubin 0.6 mg/dL (0.2-1.0) Aspartate Amino Transferase (AST) 63 U/L (13-40) Alanine Aminotransferase (ALT) 66 U/L (7-40) Alkaline Phosphatase 61 U/L (46-116) Total Protein 6.0 g/dL (5.7-8.2) Albumin 3.9 g/dL (3.2-4.8) Blood Gas Specimen Type Arterial Blood Gas Sample Site Right radial Blood Gas Patient Temperature 37.0 Arterial Blood Date Drawn [id number] Arterial Blood pH 7.384 (7.350-7.450) Arterial Blood Partial Pressure CO2 33.5 mmHg (32.0-45.0) Arterial Blood Partial Pressure O2 112.1 mmHg (83.0-108.0) Arterial Blood HCO3 19.6 mmol/L (21.0-28.0) Arterial Blood Oxygen Saturation 97.9 % (94.0-98.0) Arterial Blood Base Excess -4.6 mmol/L (-2.0-3.0) Arterial Blood Oxyhemoglobin 97.4 % (94.0-98.0) Arterial Blood Carboxyhemoglobin 0.5 % (0.5-1.5) Arterial Blood Methemoglobin 0.0 % (0.0-1.5) Darnell Test Modified Blood Gas Total Hemoglobin 14.30 g/dL (12.0-16.0) Blood Gas Modality Vent - cpap FiO2 % 35.0 Blood Gas Pressure Support 7 Blood Gas PEEP or CPAP 5.0 Blood Gas Set Respiration Rate 20.0 Blood Gas Tidal Volume 500.0 Influenza Type A Antigen Negative (Negative) Influenza Type B Antigen Negative (Negative) SARS-CoV-2 Antigen (Rapid) Negative (NEGATIVE) Test 12/18/23 03:03 12/17/23 21:46 12/17/23 09:38 12/17/23 07:35 Phosphorus Level 2.8 mg/dL (2.4-5.1) Magnesium Level 2.4 mg/dL (1.6-2.6) Lactic Acid Level 2.0 mmol/L (0.4-2.0) Blood Gas Critical Value Read Back Yes Blood Gas Notified Whom chance Marti md Blood Gas Notified Time [id number] Blood Gas Notified By Street Cleaner eliza kiran Differential Total Cells Counted 100.0 (100) Neutrophils % (Manual) 44 (37.0-80.0) Band Neutrophils % (Manual) 0 Lymphocytes % (Manual) 39 (10.0-50.0) Monocytes % (Manual) 8 (0-12) Eosinophils % (Manual) 9 (0-7) Basophils % (Manual) 0 (0.0-2.0) Metamyelocytes % (manual) 0 Myelocytes % (Manual) 0 Promyelocytes % (Manual) 0 Blast Cells % (Manual) 0 Reactive Lymphocytes 0 Platelet Estimate Adequate Test 12/17/23 07:27 Urine Color Light-yellow (Yellow) Urine Clarity Clear (Clear) Urine pH 5.5 (5.0-9.0) Urine Specific [place] 1.013 (1.001-1.035) Urine Protein 1+ (Negative) Urine Ketones Negative (Negative) Urine Blood 2+ /uL (Negative) Urine Nitrite Negative (Negative) Urine Bilirubin Negative (Negative) Urine Urobilinogen Normal mg/dL (Negative) Urine Leukocyte Esterase Negative /uL (Negative) Urine RBC <1 /hpf (0 - 4) Urine WBC <1 /hpf (0 - 5) Urine Squamous Epithelial Cells Few /hpf (<5) Urine Bacteria None seen /hpf (None Seen) Urine Hyaline Casts Many /lpf (0 - 2) Urine Glucose Normal mg/dL (Normal) Urine Opiates Screen Neg (NEGATIVE) Urine Fentanyl Screen Neg (NEGATIVE) Urine Barbiturates Screen Neg (NEGATIVE) Urine Phencyclidine Screen Neg (NEGATIVE) Urine Amphetamines Screen Pos (NEGATIVE) Urine Benzodiazepines Screen Neg (NEGATIVE) Urine Cocaine Screen Neg (NEGATIVE) Urine Cannabinoids Screen Pos (NEGATIVE) Other Laboratory Tests 12/19/23 03:24 Brief Hx & Hospital Course: A 30-year-old woman with past medical history of asthma and polysubstance use who came to the ED brought by the family for shortness of breath wheezing cyanotic and three put position she was intubated and the arrival of the emergency room according to the family and patient is also uses heroin and methadone urine tox is positive for marijuana and methamphetamines. Patient tolerated extubation during her 2 day of admission, also patient was on vasopressors during the first day but wean off on the second. During her 3rd day of admission, patient was hemodynamically stable, no SIRS, no respiratory distress, pt was discharged with new prescription due to asthma exacerbation y counseling about continue methadone clinic. Gen.: Patient lying in bed in medical ICU. Head: Normocephalic, atraumatic. Eyes: PERRLA. Ears: Normal external anatomy. Neck: Supple, trachea midline. Chest: lungs clear . No wheezing. Bibasilar crackles. Cardio vascular: Positive S1, positive S2. Regular rate and rhythm. Abdomen: Positive bowel sounds in all 4 quadrants. Soft, nontender, nondistended. Skin: Warm, dry. Intact. Extremities: 2+ radial pulses bilaterally. No lower extremity edema. Case discussed with Dr Naqvi Time spent on critical care . Consults/Reason for consult pulmonology due to acute respiratory failure Operations or Procedures ULTRASOUND-GUIDED RIGHT SUBCLAVIAN CENTRAL VENOUS CANNULATION CPT Codes: 79268 (ultrasound guidance) 42924 (insertion of non-tunneled centrally inserted central venous catheter) 47788 (CXR interpretation) DATE: 12/17/2023 PHYSICIAN: Aditya Mike PREOPERATIVE DIAGNOSIS: Poor venous access, administration of vaso-active medications. POSTOPERATIVE DIAGNOSIS: Same PROCEDURE PERFORMED: Limited Ultrasound-guided Right SUBCLAVIAN central line placement. ANESTHESIA: 2 mL of 1% lidocaine plain. ESTIMATED BLOOD LOSS: less than 5 mL. SPECIMENS: None. COMPLICATIONS: None. INDICATIONS FOR PROCEDURE: The patient is in need of large bore IV access for administration of fluids, including blood products and vasoactive drugs, possible transvenous cardiac pacing and CVP monitoring for hemodynamic instability. DESCRIPTION OF PROCEDURE IN DETAIL: The patient was lying in the Trendelenburg position with head turned 30 degrees away from the insertion site. The skin was thoroughly sponged with chlorhexidine and allowed to dry. All persons involved were shielded with hair nets, face masks and sterile gowns. With sterile-gloved hands the right neck area was draped with the large disposable sterile field provided in the pre-manufactured kit. The skin and subcutaneous tissues superficial to the RIGHT SUBCLAVIAN vein were anesthetized with 2 mL of 1% lidocaine. The RIGHT SUBCLAVIAN vein was identified on ultrasound from the angle of the mandible down into the supraclavicular fossa using the linear ultrasound probe in the transverse orientation. The carotid artery was identified and avoided utilizing color-flow. The SUBCLAVIAN vein was then placed in the center of the ultrasound field and compressed for patency. A movement artifact was identified as the needle was advanced through the skin and advanced toward the vessel. A real time hyperechoic signal revealed visualization of vascular needle entry into the lumen as blood was noted to flashback in the syringe. The needle was then held in place while the guide wire was advanced. The needle was then removed. Direct visualization of guide wire location within the vein was noted on ultrasound indicating proper placement and was document in the electronic medical record chart. A skin dilator was advanced over the guidewire and removed, and the triple-lumen catheter was then advanced over the guide wire into proper position. The guide wire was removed and discarded. The ports were aspirated which showed good blood return and then carefully flushed with normal saline. The catheter was stabilized and sutured to the skin with 2-0 silk at 2 anchor points. A sterile bio-patch and dressing was placed over the catheter, including the insertion site. The patient tolerated the procedure well. A chest x-ray was ordered for position confirmation. I reviewed the image immediately after it was taken at bedside. Post-procedure chest x-ray demonstrates the central line in the superior vena near RA and no evidence of any pneumothorax. An image recording of the procedure accompanies the chart. Condition at Discharge: Stable Final Diagnosis/Problems List #polysubstance abuse #opioid withdraw #septic shock? possible concomitant pneumonia in asthma exacerbation #Acute hypoxic respiratory failure secondary to asthma exacerbation #Acute hypercarbic respiratory failure #s/p mechanical ventilator #Asthma exacerbation Discharge Disposition: Home Discharge Instruct/Medications Diet: Regular Activity: No Restrictions, As Tolerated Follow Up/Referral: [facility] Medications: see new presctiptions Discharge Statement: "Patient was advised to return to the ER or call 911 if any headaches, dizziness, shortness of breath, chest pain, abdominal pain, bleeding, fevers, or worsening of medical condition. Patient was counseled about treatment plan, medications, possible side effects, patientverbalized understanding. All questions were answered to the best of my ability. This discharge took greater then 30 minutes in planning, reviewing documentation, counseling the patient, and discussing with other team members." ASSESSMENT ASSESSMENT Assessment Asthma Exacerbation Date of Service: Dec 19, 2023 Billing Provider: JOSÉ ANTONIO NAQVI MD Common Visit Codes: 42609-SZX/OBS DISCH DAY >30min MARY JANE PANTOJA RESIDENT Dec 20, 2023 13:56 JOSÉ ANTONIO NAQVI MD Dec 22, 2023 14:31
== END 2023-12-19 12:14 | disposition home or self-care (01) | DRG 720 ==
LOC: EDBD 06:58 → ER 07:05 → TELE 09:51 → ICU WEST 11:08
PROVIDERS: ADMIT Internal Medicine Pulmonary Disease; ATTEND Emergency Medicine
PROC: 5A1945Z Respiratory Ventilation, 24-96 Consecutive Hours (ICD-10-PCS; principal; 2023-12-17)
PROC: 0BH18EZ Insertion of Endotracheal Airway into Trachea, Via Natural or Artificial Opening Endoscopic (ICD-10-PCS; 2023-12-17)
PROC: 02HV33Z Insertion of Infusion Device into Superior Vena Cava, Percutaneous Approach (ICD-10-PCS; 2023-12-17)
PROC: B548ZZA Ultrasonography of Superior Vena Cava, Guidance (ICD-10-PCS; 2023-12-17)
DX: A41.9 Sepsis, unspecified organism (principal); J96.01 Acute respiratory failure with hypoxia; R65.21 Severe sepsis with septic shock; J18.9 Pneumonia, unspecified organism; J45.901 Unspecified asthma with (acute) exacerbation; N17.9 Acute kidney failure, unspecified; J96.02 Acute respiratory failure with hypercapnia; F15.10 Other stimulant abuse, uncomplicated; Z20.822 Contact with and (suspected) exposure to COVID-19; F12.10 Cannabis abuse, uncomplicated; E66.9 Obesity, unspecified; Z68.26 Body mass index [BMI] 26.0-26.9, adult
CPT/HCPCS: 31500; 36415; 36600; 71045; 80048; 80053; 80307; 81001; 82805; 83605; 83735; 84100; 85007; 85025; 85027; 87040; 87070; 87081; 87205; 87426; 87804; 94002; 94003; 94640; 94644; 96361; 96365; 96368; 96375; 97163; 99291; 99292; G0378; J1956; J2704; J3490; J7060

== ENCOUNTER 2024-12-19 22:55 | Inpatient (IN) | payer MEDICAID ==
[~2024-12-19] VITALS: Ht 172.7 cm; Wt 90.7 kg
[~2024-12-19 22:55] MED LIST changes: +FLUT1INH6 IN
[2024-12-19 23:21] VITALS: O2SAT 89
--- NOTE | 2024-12-20 00:14 | ED.PDOC ---
History of Present Illness HPI Comments 34-year-old female is brought in by ambulance for chief complaint of shortness of breath. Significant history for asthma, acute hypoxic/hypercarbic respiratory failure, hypothyroidism, and polysubstance abuse. Per EMS personnel report, patient endorses 1 week history of difficulty breathing, which worsened, today. Patient reports on using her at-home breathing treatments, with no relief or improvement. On scene, she was found with an oxygen saturation of 85% on room air. EN route, patient received 2 albuterol and 1 Atrovent breathing treatment, 1 epinephrine, and oxygen, with improvement. Patient denies having any chest pain, fever, chills, or further acute symptoms. REVIEW OF SYSTEMS: General: No fever, no chills, or fatigue HEENT: No sore throat, no earache, no congestion, no neck pain. Cardiac: No chest pain. No palpitations. Lungs: shortness of breath, no cough. GI: No nausea, no vomiting, no diarrhea, no constipation, no abdominal pain : No dysuria, frequency, or urgency. No hematuria. Musculoskeletal: No joint pain , no joint swelling, no extremity edema. Skin: No rash, no itching. Neuro: No headache, no dizziness, no weakness (And as sated in HPI) PHYSICAL EXAM: General: Awake, alert and oriented. No acute distress. Skin: Skin in warm, dry and intact. Appropriate color for ethnicity. HEENT: The head is normocephalic and atraumatic. Conjunctivae are clear without exudates or hemorrhage. Sclera is non-icteric. Eyelids are normal in appearance without swelling or lesions. Oral mucosa is pink and moist Neck: The neck is supple with normal range of motion. No JVD. Cardiac: Heart rate and rhythm are normal. No murmurs, gallops, or rubs are auscultated. Respiratory: Bilateral inspiratory wheezes. No signs of respiratory distress. Abdominal: Abdomen is soft, non-tender without distention, guarding or rigidity. Bowel sounds are present and normoactive in all four quadrants. Extremities: Upper and lower extremities are atraumatic in appearance without deformity or edema. Neurological: The patient is awake, alert and oriented to person, place, and time with normal speech. Speech is clear. There is no facial asymmetry. Psychiatric: Appropriate mood and affect. Good judgement and insight. Chief Complaint: Shortness of Breath Time Seen by MD: 23:50 Primary Care Provider: NONE Reviewed Notes: Nurses Notes, Upholstery Bundler Notes, Medications, Allergies Allergies: Coded Allergies: NO KNOWN ALLERGIES (Unverified , 05/14/16) Home Meds Active Scripts Fluticasone Furoate-Vilanterol (Breo Ellipta 200-25 Mcg/INH) 1 Inh Inh, 1 INH IN DAILY for 30 Days, #39 INHALER Prov:JOSÉ ANTONIO SINGH MD 12/19/23 Prednisone (Prednisone) 20 Mg Tab, 20 MG PO BID for 5 Days, #10 TAB Prov:JOSÉ ANTONIO SINGH MD 12/19/23 Ipratropium [place] (Ipratropium [place]) 0.02 % Crystal, 0.5 % NEB Q6HPRN PRN, #120 VIAL Prov:KEYONNA MOORE MD 02/16/21 Albuterol Sulfate (Albuterol Sulfate) 0.083 % Neb, 1 VIAL NEB Q6HPRN PRN, #120 VIAL Prov:KEYONNA MOORE MD 02/16/21 Dextromethorphan-Guaifenesin (Robitussin-Dm) 10 Ml Sr, 10 ML PO Q4HP PRN, #480 ML Prov:KEYONNA MOORE MD 02/16/21 Information Source: Patient Mode of Arrival: EMS Severity: Moderate Timing: Days Duration: Since onset Prehospital treatment: 12 Lead EKG, Breathing Tx, Cell Pourer, Oxygen, Treatment (Epinephrine) Past Medical History PAST MEDICAL HISTORY: Asthma Past Medical History (Other): Acute hypoxic/hypercarbic respiratory failure Surgical History: Denies all surgeries BOXCAR WEIGHER History: Denies all BOXCAR WEIGHER Hx Family History Family History: Reviewed,noncontributory to illness Social History Smoker: Non-Smoker Alcohol: Denies ETOH Use Drugs: Heroin, Marijuana, Methamphetamine Lives In: Home Was a procedure done? Was a procedure done?: No Differential Dx Considerations may include: Differential diagnoses considered includebut arenot limited to acute Bronchitis, Asthma, COPD, Pneumothorax, PE, CHF, Pulmonary HTN, Anemia, CO Poisoning, Methemoglobinemia, Hyperventilation, Metabolic Acidosis, Pulmonary Edema, Pneumonia, ACS, Pericardial Tamponade, Anxiety, other X-Ray, Labs, Meds, VS Vital Signs Date Time Temp Pulse Resp B/P (MAP) Pulse Ox O2 Delivery O2 Flow Rate FiO2 12/20/24 00:17 18 95 Simple Mask* 6 50 12/19/24 23:36 13 95 12/19/24 23:30 98.4 94 14 108/66 (80) 88 98.4 12/19/24 23:21 89 Nasal Cannula* 4 36 12/19/24 23:21 98.4 102 16 111/77 (88) 89 98.4 12/19/24 23:04 98.2 108 24 143/90 94 98.2 Lab Test 12/20/24 00:16 12/20/24 00:07 12/20/24 00:01 Range/Units Influenza Type A Antigen Negative Negative Influenza Type B Antigen Negative Negative SARS-CoV-2 Antigen (Rapid) Negative NEGATIVE White Blood Count 12.0 H 4.4-10.8 10^3/uL Red Blood Count 5.17 4.0-5.20 10^6/uL Hemoglobin 14.3 12.2-16.2 g/dL Hematocrit 43.1 36.0-46.0 % Mean Corpuscular Volume 83.4 80.0-100.0 fL Mean Corpuscular Hemoglobin 27.7 L 28.0-32.0 pg Mean Corpuscular Hemoglobin Concent 33.2 32.0-36.0 g/dL Red Cell Distribution Width 13.2 11.8-14.3 % Platelet Count 263 140-450 10^3/uL Mean Platelet Volume 8.6 6.9-10.8 fL Neutrophils (%) (Auto) 63.2 37.0-80.0 % Lymphocytes (%) (Auto) 23.2 10.0-50.0 % Monocytes (%) (Auto) 7.8 0.0-12.0 % Eosinophils (%) (Auto) 5.0 0.0-7.0 % Basophils (%) (Auto) 0.8 0.0-2.0 % Neutrophils # (Auto) 7.6 1.6-8.6 10 ^3/uL Lymphocytes # (Auto) 2.8 0.4-5.4 10 ^3/uL Monocytes # (Auto) 0.9 0-1.3 10 ^3/uL Eosinophils # (Auto) 0.6 0-0.8 10 ^3/uL Basophils # (Auto) 0.1 0-0.2 10 ^3/uL Nucleated Red Blood Cells 0.1 % Sodium Level 141 136-145 mmol/L Potassium Level 3.8 3.5-5.1 mmol/L Chloride Level 107 98-107 mmol/L Carbon Dioxide Level 25 20-31 mmol/L Anion Gap 9 5-15 Blood Urea Nitrogen 11 9-23 mg/dL Creatinine 0.88 0.550-1.02 mg/dL Glomerular Filtration Rate Calc 88 >90 mL/min BUN/Creatinine Ratio 12.5 10.0-20.0 Serum Glucose 119 H 74-106 mg/dL Lactic Acid Level 0.9 0.4-2.0 mmol/L Calcium Level 9.0 8.7-10.4 mg/dL Troponin I High Sensitivity < 3 L </=34 ng/L Blood Gas Specimen Type Arterial Blood Gas Sample Site Right radial Blood Gas Patient Temperature 37.0 Arterial Blood Date Drawn [id number] Arterial Blood pH 7.372 7.350-7.450 Arterial Blood Partial Pressure CO2 40.7 32.0-45.0 mmHg Arterial Blood Partial Pressure O2 125.8 H 83.0-108.0 mmHg Arterial Blood HCO3 23.1 21.0-28.0 mmol/L Arterial Blood Oxygen Saturation 98.6 H 94.0-98.0 % Arterial Blood Base Excess -2.0 -2.0-3.0 mmol/L Arterial Blood Oxyhemoglobin 97.0 94.0-98.0 % Arterial Blood Carboxyhemoglobin 1.1 0.5-1.5 % Arterial Blood Methemoglobin 0.5 0.0-1.5 % Darnell Test Modified Blood Gas Total Hemoglobin 14.90 12.0-16.0 g/dL Blood Gas Liter Flow 6.00 Blood Gas Modality Mask - simple FiO2 % 44.0 Current Medications Medications (Trade) Dose Ordered Sig/Murphy Route Start Time Stop Time Status Last Admin Albuterol (Ventolin Medneb) 20 mg ONCE ONCE NEB 12/20/24 00:00 12/20/24 00:01 DC 12/20/24 00:17 Ipratropium [place] (Atrovent Medneb) 0.5 mg ONCE ONCE NEB 12/20/24 00:00 12/20/24 00:01 DC 12/20/24 00:17 Dexamethasone Sodium Phosphate (Decadron Injection) 10 mg ONCE ONCE IV 12/20/24 00:00 12/20/24 00:01 DC 12/20/24 00:10 Time of 1ST Reevaluation: 00:06 Reevaluation 1ST: Unchanged Patient Education/Counseling: Need For Follow Up Family Education/Counseling: No Family Present SEPSIS Sepsis Screen Date sepsis recognized/suspect: Dec 19, 2024 Time Sepsis recognized/suspect: 2310 Recent Procedure: No On Antibiotic Therapy: No Respiratory Rate >20: Yes Heart Rate >90: Yes Temp<36 C (96.8 F) or >38.3 C: No SBP <90 or MAP <65 mmHG: No New Acute Mental Status Change: No Is the patient on CPAP, BIPAP,: No Physician Orders Abg W/ Co-Ox (12/19/24 23:49) Chest Xray 1 View (12/19/24 23:49) Electrocardigram (12/19/24 23:49) Vital Signs Date Time Temp Pulse Resp B/P (MAP) Pulse Ox O2 Delivery O2 Flow Rate FiO2 12/20/24 00:17 18 95 Simple Mask* 6 50 12/19/24 23:36 13 95 12/19/24 23:30 98.4 94 14 108/66 (80) 88 98.4 12/19/24 23:21 89 Nasal Cannula* 4 36 12/19/24 23:21 98.4 102 16 111/77 (88) 89 98.4 12/19/24 23:04 98.2 108 24 143/90 94 98.2 Laboratory Tests Test 12/20/24 00:07 Lactic Acid Level 0.9 mmol/L (0.4-2.0) White Blood Count 12.0 10^3/uL (4.4-10.8) H Medications Medications Dose Ordered Sig/Murphy Route Start Time Stop Time Status Last Admin Dose Admin Albuterol 20 mg ONCE ONCE NEB 12/20/24 00:00 12/20/24 00:01 DC 12/20/24 00:17 Dexamethasone Sodium Phosphate 10 mg ONCE ONCE IV 12/20/24 00:00 12/20/24 00:01 DC 12/20/24 00:10 Ipratropium [place] 0.5 mg ONCE ONCE NEB 12/20/24 00:00 12/20/24 00:01 DC 12/20/24 00:17 Departure 1 Departure Time of Disposition: 01:55 Impression: Primary Impression: Asthma exacerbation Additional Impression: Hypoxia Disposition: 09 ADMITTED INPATIENT Admit to: Tele Condition: Guarded Comments MDM: Patient is stabilized in the ED. Patient admitted to hospitalist service for further treatment, evaluation and monitoring. Extensive evaluation was performed in attempt to identify or rule out: (See differential diagnosis section) The following tests were ordered, and results were reviewed by me and discussed with patient: (See diagnostic results section) The following test were independently interpreted by me: EKG, BMP, rapid influenza a and B test, COVID-19 angina and Maddi test, lactic acid reflux, troponin, CBC I reviewed and agreed with the following test results read by other providers: Chest x-ray I reviewed the following notes from the pt's past medical encounters: December 17, 2023 encounter for respiratory failure with hypoxia Additional information was gathered from interviewing the following independent historians: EMS personnel Discussion of management or test interpretation with external physician/other qualified health care administrative tech: N/A Addressed one or more chronic illnesses with severe exacerbation, progression, or side effects of treatment: Asthma Decision regarding hospitalization or escalation of hospital level of care: Risk and benefits of admission for further treatment of patient's condition was considered. Due to patient's current clinical condition, high risk of decline and poor outcome if discharged and need for further inpatient management and monitoring, patient will be admitted to the hospital. Critical Care Note Critical Care Time?: No Stability Stability form required: No Heart Score Heart Score: Heart Score Response (Comments) Value History N/A 0 EKG N/A 0 Age N/A 0 Risk Factors N/A 0 Troponin N/A 0 Total 0 I personally scribed for BEATRICE CHONG MD ([email or web address]) on 12/20/24 at 00:14. Electronically submitted by Zia Mclaughlin ([email or web address]). BEATRICE CHONG MD Dec 20, 2024 00:14
[2024-12-20] MEDS: ALBUTEROL SULF 2.5 MG/0.5ML(0.5%) NEB SOLN NEB ONE (00:17)
[2024-12-20] MEDS: IPRATROPIUM BROM 0.5 MG/2.5ML INH SOL NEB ONE (00:17)
[2024-12-20 00:22] LABS: Base Excess -2.0 mmol/L (-2.0-3.0)
--- NOTE | 2024-12-20 00:24 | DVH ---
CHEST RADIOGRAPH Indication: Shortness of breath Technique: Single frontal view of the chest was obtained COMPARISON: XY CHEST XRAY 1 VIEW on DOS: 12/19/23, XY CHEST PORTABLE on DOS: 12/18/23, XY CHEST PORTABLE on DOS: 12/17/23, XY CHEST PORTABLE on DOS: 12/17/23, XY CHEST TWO VIEWS ROUTINE on DOS: 10/26/23 FINDINGS: Lines and Tubes: None Lungs: Clear Pleura: No effusion. No pneumothorax. Cardiomediastinal contours: Unremarkable Bones: Unremarkable IMPRESSION: 1. No acute disease.
[2024-12-20 00:56] LABS: Hematocrit 43.1 % (36.0-46.0); Hemoglobin 14.3 g/dL (12.2-16.2); Mean Corpuscular Hemoglobin 27.7 pg (28.0-32.0); Mean Corpuscular Volume 83.4 fL (80.0-100.0); Nucleated Red Blood Cells % 0.1 %
[2024-12-20 01:05] LABS: Chloride 107 mmol/L (98-107); Potassium 3.8 mmol/L (3.5-5.1); Sodium 141 mmol/L (136-145)
[2024-12-20 01:06] LABS: Anion Gap 9 (5-15); Calcium 9.0 mg/dL (8.7-10.4); Carbon Dioxide 25 mmol/L (20-31)
[2024-12-20 01:11] LABS: BUN/Creatinine Ratio 12.5 (10.0-20.0); Blood Urea Nitrogen 11 mg/dL (9-23)
[2024-12-20 01:16] LABS: COVID19 ANTIGEN SOFIA FIA NEGATIVE (NEGATIVE)
[2024-12-20 01:21] LABS: Glucose 119 mg/dL (74-106)
[2024-12-20] MEDS ORDERED: NITROGLYCERIN 0.4 MG SL TAB SL PRN (02:45)
[2024-12-20] MEDS ORDERED: IPRATROPIUM BROM 0.5 MG/2.5ML INH SOL NEB PRN (02:45)
[2024-12-20] MEDS ORDERED: ONDANSETRON HCL 4 MG/2 ML VIAL IV PRN (02:45)
[2024-12-20] MEDS ORDERED: ALBUTEROL SULF 2.5 MG/0.5ML(0.5%) NEB SOLN NEB PRN (02:45)
[2024-12-20] MEDS ORDERED: MORPHINE SULFATE INJ 2 MG/ml SYRG IV PRN (02:45)
[2024-12-20] MEDS ORDERED: ACETAMINOPHEN 325 MG TAB PO PRN (02:45)
[2024-12-20] MEDS ORDERED: TEMAZEPAM 15 MG CAP PO PRN (02:45)
[2024-12-20 02:50] VITALS: BP 108/66; PULSE 90; RESP 18; TEMP 98.4; O2SAT 95
[2024-12-20 03:39] VITALS: O2SAT 93
--- NOTE | 2024-12-20 04:14 | DVHHP2 ---
History of Present Illness Reason for Visit: Shortness for breath History of Present Illness 34-year-old female presents for evaluation of shortness for breath. Patient reports a four day history of worsening shortness for breath not being relieved with her inhaler and nebulizer. States having a nonproductive cough. No fever or chills. Denies chest pain. Past Medical History Asthma Past Surgical History Denies Family History Noncontributory Smoke: No ALCOHOL: none Drugs: Marijuana, Other (Methamphetamine) Review of Systems Review of Systems Review of systems are currently negative otherwise addressed in HPI. Allergies: Coded Allergies: NO KNOWN ALLERGIES (Unverified , 05/14/16) Medications Current Medications Medications Dose Ordered Sig/Murphy Route Start Time Stop Time Status Last Admin Dose Admin Albuterol 2.5 mg Q6HPRN PRN NEB 12/20/24 02:45 Ipratropium [place] 0.5 mg Q6HPRN PRN NEB 12/20/24 02:45 Methylprednisolone Sodium Succinate 40 mg DAILY IV 12/20/24 10:00 Temazepam 15 mg QHSP PRN PO 12/20/24 02:45 Ondansetron HCl 4 mg Q4HP PRN IV 12/20/24 02:45 Acetaminophen 650 mg Q6HP PRN PO 12/20/24 02:45 Nitroglycerin 0.4 mg Q5MINP PRN SL 12/20/24 02:45 Morphine Sulfate 2 mg Q30M PRN IV 12/20/24 02:45 Exam Vital Signs Vital Signs Date Time Temp Pulse Resp B/P (MAP) Pulse Ox O2 Delivery O2 Flow Rate FiO2 12/20/24 03:39 93 Nasal Cannula 5.0 12/20/24 03:39 40 12/20/24 03:17 75 12/20/24 02:50 98.4 18 108/66 98.4 Exam Gen: 34-year-old female in mild distress Skin: Warm, dry, normal color and texture, no rash. HEENT: Normocephalic atraumatic, mucous membranes moist and pink. Neck: Cervical and supraclavicular nodes normal without enlargement, trachea is midline, thyroid gland is normal without masses. Pulmonary: Bilateral wheeze Cardiac: Regular rate and rhythm. No murmur Abdomen: Soft, nontender, nondistended, bowel sounds present all 4 quadrants, no guarding, no rigidity, no organomegaly. Extremities: No cyanosis, clubbing, no edema Neuro: Cranial nerves II through XII grossly intact, normal affect and speech, no focal motor deficits. Labs/Xrays ORDERING PHYSICIAN: BEATRICE CHONG MD PROCEDURE(s): CXR1 - CHEST XRAY 1 VIEW REASON: Shortness of breath ORDER NUMBER(s): [id number], ACCESSION NUMBER(s): [id number] CHEST RADIOGRAPH Indication: Shortness of breath Technique: Single frontal view of the chest was obtained COMPARISON: XY CHEST XRAY 1 VIEW on DOS: 12/19/23, XY CHEST PORTABLE on DOS: 12/18/23, XY CHEST PORTABLE on DOS: 12/17/23, XY CHEST PORTABLE on DOS: 12/17/23, XY CHEST TWO VIEWS ROUTINE on DOS: 10/26/23 FINDINGS: Lines and Tubes: None Lungs: Clear Pleura: No effusion. No pneumothorax. Cardiomediastinal contours: Unremarkable Bones: Unremarkable IMPRESSION: 1. No acute disease. : Labs Test 12/20/24 00:16 12/20/24 00:07 12/20/24 00:01 Range/Units Influenza Type A Antigen Negative Negative Influenza Type B Antigen Negative Negative SARS-CoV-2 Antigen (Rapid) Negative NEGATIVE White Blood Count 12.0 H 4.4-10.8 10^3/uL Red Blood Count 5.17 4.0-5.20 10^6/uL Hemoglobin 14.3 12.2-16.2 g/dL Hematocrit 43.1 36.0-46.0 % Mean Corpuscular Volume 83.4 80.0-100.0 fL Mean Corpuscular Hemoglobin 27.7 L 28.0-32.0 pg Mean Corpuscular Hemoglobin Concent 33.2 32.0-36.0 g/dL Red Cell Distribution Width 13.2 11.8-14.3 % Platelet Count 263 140-450 10^3/uL Mean Platelet Volume 8.6 6.9-10.8 fL Neutrophils (%) (Auto) 63.2 37.0-80.0 % Lymphocytes (%) (Auto) 23.2 10.0-50.0 % Monocytes (%) (Auto) 7.8 0.0-12.0 % Eosinophils (%) (Auto) 5.0 0.0-7.0 % Basophils (%) (Auto) 0.8 0.0-2.0 % Neutrophils # (Auto) 7.6 1.6-8.6 10 ^3/uL Lymphocytes # (Auto) 2.8 0.4-5.4 10 ^3/uL Monocytes # (Auto) 0.9 0-1.3 10 ^3/uL Eosinophils # (Auto) 0.6 0-0.8 10 ^3/uL Basophils # (Auto) 0.1 0-0.2 10 ^3/uL Nucleated Red Blood Cells 0.1 % Sodium Level 141 136-145 mmol/L Potassium Level 3.8 3.5-5.1 mmol/L Chloride Level 107 98-107 mmol/L Carbon Dioxide Level 25 20-31 mmol/L Anion Gap 9 5-15 Blood Urea Nitrogen 11 9-23 mg/dL Creatinine 0.88 0.550-1.02 mg/dL Glomerular Filtration Rate Calc 88 >90 mL/min BUN/Creatinine Ratio 12.5 10.0-20.0 Serum Glucose 119 H 74-106 mg/dL Lactic Acid Level 0.9 0.4-2.0 mmol/L Calcium Level 9.0 8.7-10.4 mg/dL Troponin I High Sensitivity < 3 L </=34 ng/L Blood Gas Specimen Type Arterial Blood Gas Sample Site Right radial Blood Gas Patient Temperature 37.0 Arterial Blood Date Drawn [id number] Arterial Blood pH 7.372 7.350-7.450 Arterial Blood Partial Pressure CO2 40.7 32.0-45.0 mmHg Arterial Blood Partial Pressure O2 125.8 H 83.0-108.0 mmHg Arterial Blood HCO3 23.1 21.0-28.0 mmol/L Arterial Blood Oxygen Saturation 98.6 H 94.0-98.0 % Arterial Blood Base Excess -2.0 -2.0-3.0 mmol/L Arterial Blood Oxyhemoglobin 97.0 94.0-98.0 % Arterial Blood Carboxyhemoglobin 1.1 0.5-1.5 % Arterial Blood Methemoglobin 0.5 0.0-1.5 % Darnell Test Modified Blood Gas Total Hemoglobin 14.90 12.0-16.0 g/dL Blood Gas Liter Flow 6.00 Blood Gas Modality Mask - simple FiO2 % 44.0 SEPSIS Sepsis Screen Date sepsis recognized/suspect: Dec 19, 2024 Time Sepsis recognized/suspect: 2320 Recent Procedure: No On Antibiotic Therapy: No Respiratory Rate >20: No Heart Rate >90: Yes Temp<36 C (96.8 F) or >38.3 C: No SBP <90 or MAP <65 mmHG: No New Acute Mental Status Change: No Is the patient on CPAP, BIPAP,: No Physician Orders Abg W/ Co-Ox (12/19/24 23:49) Chest Xray 1 View (12/19/24 23:49) Electrocardigram (12/19/24 23:49) Albuterol Medneb (Ventolin Medneb) (12/20/24 02:45) Ipratropium Medneb (Atrovent Medneb) (12/20/24 02:45) Methylprednisolone Sod Succ (Solu Medrol (12/20/24 10:00) Regular Diet (12/20/24 Breakfast) Basic Metabolic Panel (12/21/24 04:00) Admit (12/20/24 02:43) Temazepam (Restoril) (12/20/24 02:45) Ondansetron Hcl (Zofran) (12/20/24 02:45) Complete Blood Count (12/21/24 04:00) Condition: Fair (12/20/24 02:43) Acetaminophen Tablet (Tylenol Tablet) (12/20/24 02:45) Bedrest With Bathroom Privileg (12/20/24 02:43) Nitroglycerin Sublingual (Ntrostat Subli (12/20/24 02:45) Morphine Sulfate Injection (12/20/24 02:45) Stat Ekg For Chest Pain (12/20/24 02:43) Notify Md Of Changes From Base (12/20/24 02:43) Jar Filler For 24 Hours (12/20/24 02:43) Emergency Dysrhythmia Protocol (12/20/24 02:43) Rhythm Strips Once Every Shift (12/20/24 02:43) Oxygen By Nasal Cannula (12/20/24 02:43) Vital Signs Date Time Temp Pulse Resp B/P (MAP) Pulse Ox O2 Delivery O2 Flow Rate FiO2 12/20/24 03:39 93 Nasal Cannula 5.0 12/20/24 03:39 93 Nasal Cannula* 5 40 12/20/24 03:17 75 12/20/24 02:50 98.4 90 18 108/66 95 5.0 40 98.4 12/20/24 00:17 18 95 Simple Mask* 6 50 12/19/24 23:36 13 95 12/19/24 23:30 98.4 94 14 108/66 (80) 88 98.4 12/19/24 23:21 89 Nasal Cannula* 4 36 12/19/24 23:21 98.4 102 16 111/77 (88) 89 98.4 12/19/24 23:04 98.2 108 24 143/90 94 98.2 Laboratory Tests Test 12/20/24 00:07 Lactic Acid Level 0.9 mmol/L (0.4-2.0) White Blood Count 12.0 10^3/uL (4.4-10.8) H Medications Medications Dose Ordered Sig/Murphy Route Start Time Stop Time Status Last Admin Dose Admin Albuterol 20 mg ONCE ONCE NEB 12/20/24 00:00 12/20/24 00:01 DC 12/20/24 00:17 20 MG Dexamethasone Sodium Phosphate 10 mg ONCE ONCE IV 12/20/24 00:00 12/20/24 00:01 DC 12/20/24 00:10 10 MG Ipratropium [place] 0.5 mg ONCE ONCE NEB 12/20/24 00:00 12/20/24 00:01 DC 12/20/24 00:17 0.5 MG Assessment/Plan Assessment/Plan Assessment Acute on chronic hypoxic respiratory failure Asthma exacerbation Leukocytosis Plan discussed with: Patient My Orders Orders - DHARA BATES AGACNP Procedure Category Date Status Time Albuterol Medneb PHA 12/20/24 In Process (Ventolin Medneb) 02:45 Ipratropium Medneb PHA 12/20/24 In Process (Atrovent Medneb) 02:45 Methylprednisolone PHA 12/20/24 In Process Sod Succ (Solu Medrol 10:00 Regular Diet DIET 12/20/24 Transmitted Breakfast Basic Metabolic Panel LAB 12/21/24 Verified 04:00 Admit ADMIT 12/20/24 Transmitted 02:43 Temazepam (Restoril) PHA 12/20/24 In Process 02:45 Ondansetron Hcl PHA 12/20/24 In Process (Zofran) 02:45 Complete Blood Count LAB 12/21/24 Verified 04:00 Condition: Fair [facility] 12/20/24 In Process 02:43 Acetaminophen Tablet [facility] 12/20/24 In Process (Tylenol Tablet) 02:45 Bedrest With Bathroom [facility] 12/20/24 In Process Privileg 02:43 Nitroglycerin [facility] 12/20/24 In Process Sublingual (Ntrostat 02:45 Morphine Sulfate [facility] 12/20/24 In Process Injection 02:45 Stat Ekg For Chest [facility] 12/20/24 In Process Pain 02:43 Notify Of Changes [facility] 12/20/24 In Process From Base 02:43 Jar Filler For [facility] 12/20/24 In Process 24 Hours 02:43 Emergency Dysrhythmia [facility] 12/20/24 In Process Protocol 02:43 Rhythm Strips Once [facility] 12/20/24 In Process Every Shift 02:43 Oxygen By Nasal RT 12/20/24 Transmitted Cannula 02:43 Date of Service: Dec 20, 2024 Billing Provider: DHARA BATES Common Visit Codes: [id number] INP/OBS CARE (HIGH) DHARA BATES Dec 20, 2024 04:14
[2024-12-20 06:20] VITALS: O2SAT 93
[2024-12-20 08:00] VITALS: TEMP 97.3
[2024-12-20] MEDS: methylPREDNISolone SOD SUCC 40 MG/ML VL IV SCH (10:15)
[2024-12-20 12:00] VITALS: BP 110/67; PULSE 81; RESP 17; O2SAT 90
== END 2024-12-20 13:00 | disposition left against medical advice (07) | DRG 141 ==
LOC: EDBD 22:55 → ER 22:55 → OVERFLOW 12-20 02:43
PROVIDERS: ADMIT Nurse Practitioner Acute Care; ATTEND Nurse Practitioner Acute Care
DX: J45.901 Unspecified asthma with (acute) exacerbation (principal); J96.02 Acute respiratory failure with hypercapnia; J96.21 Acute and chronic respiratory failure with hypoxia; E03.9 Hypothyroidism, unspecified; D72.829 Elevated white blood cell count, unspecified; Z20.822 Contact with and (suspected) exposure to COVID-19; Z53.21 Procedure and treatment not carried out due to patient leaving prior to being seen by health care provider
CPT/HCPCS: 36415; 36600; 80048; 82805; 83605; 84484; 85025; 87426; 87804; 94640; 96374; G0378; J1100